=== PATIENT | female | born 1970 | race Caucasian/White ===

== ENCOUNTER 2019-10-17 01:40 | Day surgery (SDC) | payer BC, SELFPAY ==
[2019-10-04 12:53] VITALS: BMI 28.3
--- NOTE | 2019-10-17 07:22 | WPDANESEPPF ---
Anes - Initial Pre Proc Eval Procedure: Operation Date: 10/17/19 08:30 Proposed Procedures p Hysteroscopy Dilation and Curettage - Breana Hunter MD Date/Time: 10/17/19 07:22 Surgeon: Breana Hunter MD Pre Op Diagnosis: Abn uterine bleeding Patient Data Age: 49 Gender: F Height: 5 ft 3 in Weight: 72.57 kg Allergies Allergy/AdvReac Type Severity Reaction Status Date / Time Sulfa (Sulfonamide Allergy Unknown RASH Verified 10/04/19 12:56 Antibiotics) Home Medications Medication Instructions Recorded Confirmed Type bupropion HCl 300 mg PO DAILY 09/12/19 10/04/19 History cyclobenzaprine 10 mg PO BID 09/12/19 10/04/19 History dicyclomine 10 mg PO BID PRN 09/12/19 10/04/19 History estradiol 1.5 mg PO DAILY 09/12/19 10/04/19 History fluoxetine 20 mg PO DAILY 09/12/19 10/04/19 History gabapentin 600 mg PO TID 09/12/19 10/04/19 History naltrexone microspheres [Vivitrol] 380 mg IM MONTHLY 09/12/19 10/04/19 History trazodone 150 mg DAILY 09/12/19 10/04/19 History 1db 1 cap PO BID 10/04/19 History Infinity Supplement 1 cap PO BID 10/04/19 History Joint Mobility 2 cap PO BID 10/04/19 History Thyrodrive 2 cap PO BID 10/04/19 History ascorbic acid (vitamin C) [Vitamin 500 mg PO HS 10/04/19 10/04/19 History C] calcium carbonate [Calcium 600] 600 mg PO BID 10/04/19 10/04/19 History glucos sul [id number]-[id number]-C-Mn 1 cap PO BID 10/04/19 10/04/19 History [Glucosamine Chondroitin] medroxyprogesterone 5 mg PO DAILY 10/04/19 10/04/19 History omega 3-woo-alj-fish oil [Fish Oil] 1 cap PO BID 10/04/19 10/04/19 History vitamin B complex 1 cap PO BID 10/04/19 10/04/19 History Patient hx anesthesia problems: none Family hx anesthesia problems: none PMFSH Past Medical History Medical History Arthritis Diverticulosis Drug addiction History of hysteroscopy IBS (irritable bowel syndrome) Neuropathy Surgical History Surgical History History of arthroplasty of left shoulder Social History Social History Smoking status: Current every day smoker Tobacco type: cigarettes Alcohol intake: former Substance use: former Substance use type: opiates and painkillers Gender identity (if verbalized by the patient): Female Anes - Eval Final PreProcedure Day of Procedure 10/17/19 07:22 Patient weight: overweight Heart: regular rate and rhythm Lungs: decreased breath sounds Airway: Mallampati scale class II Neurological: alert and oriented Last oral intake: >/= 8 hours ASA classification: III Emergent: no Anesthetic plan: proceed Anesthesia type and monitoring: general GIVS and standard monitoring Informed Consent: The patient's anesthetic plan and its attendant risks and benefits were discussed with the patient/family/POA. Questions were solicited and answers provided to the satisfaction of the patient/family/POA.
--- NOTE | 2019-10-17 07:26 | PM.HPGS ---
History of Present Illness History of Present Illness Consent: Risks, benefits, and alternatives have been discussed and questions answered. Patient agrees to proceed with procedure. Chief complaint: Abn uterine bleeding Narrative: Prachi Patel is a 49 year old female with continued random bleeding on HRT. U/s normal and labs normal. Plan hysteroscopy with D&C. Patient aware of risks of infection, bleeding, and perforation as well as possible pathology. [facility] Past Medical History Medical History (Updated 10/17/19 @ 07:32 by Breana Hunter MD) Arthritis Diverticulosis Drug addiction History of hysteroscopy IBS (irritable bowel syndrome) Neuropathy Status post hysteroscopy Surgical History Surgical History (Updated 10/17/19 @ 07:32 by Breana Hunter MD) H/O thumb surgery x 2 History of arthroplasty of left shoulder S/P myomectomy Status post replacement of left shoulder joint Social History Social History Smoking status: Current every day smoker Tobacco type: cigarettes Alcohol intake: former Substance use: former Substance use type: opiates and painkillers Gender identity (if verbalized by the patient): Female Meds Home Medications and Allergies Home Medications Medication Instructions Recorded Confirmed Type bupropion HCl 300 mg PO DAILY 09/12/19 10/04/19 History cyclobenzaprine 10 mg PO BID 09/12/19 10/04/19 History dicyclomine 10 mg PO BID PRN 09/12/19 10/04/19 History estradiol 1.5 mg PO DAILY 09/12/19 10/04/19 History fluoxetine 20 mg PO DAILY 09/12/19 10/04/19 History gabapentin 600 mg PO TID 09/12/19 10/04/19 History naltrexone microspheres [Vivitrol] 380 mg IM MONTHLY 09/12/19 10/04/19 History trazodone 150 mg DAILY 09/12/19 10/04/19 History 1db 1 cap PO BID 10/04/19 History Infinity Supplement 1 cap PO BID 10/04/19 History Joint Mobility 2 cap PO BID 10/04/19 History Thyrodrive 2 cap PO BID 10/04/19 History ascorbic acid (vitamin C) [Vitamin 500 mg PO HS 10/04/19 10/04/19 History C] calcium carbonate [Calcium 600] 600 mg PO BID 10/04/19 10/04/19 History glucos sul 3OQa-hhf-[id number]-C-Mn 1 cap PO BID 10/04/19 10/04/19 History [Glucosamine Chondroitin] medroxyprogesterone 5 mg PO DAILY 10/04/19 10/04/19 History omega 1-hye-npd-fish oil [Fish Oil] 1 cap PO BID 10/04/19 10/04/19 History vitamin B complex 1 cap PO BID 10/04/19 10/04/19 History Allergies Allergy/AdvReac Type Severity Reaction Status Date / Time Sulfa (Sulfonamide Allergy Unknown RASH Verified 10/04/19 12:56 Antibiotics) Exam Const: General: healthy appearing and alert Orientation/consciousness: patient oriented x3 Resp: Effort & Inspection: normal respiratory effort Auscultation: clear to auscultation bilaterally Cardio: Rate: regular rate Rhythm: regular rhythm GI: GI Palp: Yes Soft to palpation, No Tenderness to palpation present (GI) and No Palpable mass present : External Female Exam: normal external appearance Speculum Exam - Vagina: normal appearance of the vagina and normal vaginal discharge Speculum Exam - Cervix: normal appearance of the cervix Bimanual exam- vagina & uterus: uterine size normal and consistency normal Bimanual Exam- Adnexa, other: normal adnexae and No adnexal tenderness Neuro: General: patient oriented x3 Assessment and Plan Assessment and plan (1) Abnormal uterine bleeding: Code(s): N93.9 - Abnormal uterine and vaginal bleeding, unspecified Status: Acute Assessment and Plan: Plan to proceed with hysteroscopy with D&C
[2019-10-17 07:33] VITALS: BP 105/53; PULSE 78; RESP 18; TEMP 36.2; O2SAT 99
[2019-10-17] MEDS: LACTATED RINGERS 1,000 ML 30 ML IV CONT (08:14)
--- NOTE | 2019-10-17 09:07 | PM.OP ---
Procedure Note - Brief Procedure Note - Brief Date of procedure: 10/17/19 Pre-op diagnosis: Abn uterine bleeding Post-op diagnosis: same Procedure performed: hysteroscopy with D&C Anesthesia: MAC and local Surgeon: Breana Hunter MD Estimated blood loss (mL): 5 Drains: No Packing: No Pathology: yes (endometrial curettings) Complications: No immediate complications Condition: stable Disposition: PACU Findings: uterus 7 cm; grossly normal appearing
[2019-10-17 09:20] VITALS: BP 103/66; PULSE 86; RESP 16; O2SAT 100
[2019-10-17 10:01] VITALS: BP 118/90; PULSE 75; RESP 16
--- NOTE | 2019-10-17 11:54 | OP_ITS ---
DATE OF PROCEDURE: 10/17/2019 PREOPERATIVE DIAGNOSIS: Abnormal uterine bleeding. POSTOPERATIVE DIAGNOSIS: Abnormal uterine bleeding. PROCEDURE: D and C, hysteroscopy. ANESTHESIA: MAC and local. FINDINGS: The uterus sounds to 7 cm, appears grossly normal. ESTIMATED BLOOD LOSS: 5 mL. PATHOLOGY: Endometrial curettings. DESCRIPTION OF PROCEDURE: The patient was taken to the operating room, placed under anesthesia, in the dorsal lithotomy position. She was prepped and draped in the usual sterile fashion. Bivalved speculum was placed in the vagina. Cervix was grasped on the anterior lip with a tenaculum and injected with 1% lidocaine. The uterus was sounded to 7 cm. The cervix was serially dilated with Hegar. The diagnostic hysteroscope was placed with the above-stated findings. The hysteroscope was removed. The medium sharp curette was used to sharply curette the endometrium until a good uterine cry was noted in all areas. All instruments were removed. The patient was awakened from anesthesia and taken to Recovery in stable condition. Giselle I MT: Musa
== END 2019-10-17 10:06 | disposition home or self-care (01) ==
PROVIDERS: PCP Family Medicine; Visit Provider Obstetrics & Gynecology Gynecology
PROC: 0U5B8ZZ Destruction of Endometrium, Via Natural or Artificial Opening Endoscopic (ICD-10-PCS; CPT 58563; principal; 2019-10-17 08:30)
DX: N93.9 Abnormal uterine and vaginal bleeding, unspecified (principal); N85.8 Other specified noninflammatory disorders of uterus; K58.9 Irritable bowel syndrome, unspecified; G62.9 Polyneuropathy, unspecified; M19.90 Unspecified osteoarthritis, unspecified site; F17.210 Nicotine dependence, cigarettes, uncomplicated; F11.20 Opioid dependence, uncomplicated
CPT/HCPCS: 58558; 88305; A9270; J0131; J1741; J2704; J7030; J7120

== ENCOUNTER → 2020-06-14 10:42 | Outpatient (CLI) | payer BC, SELFPAY ==
--- NOTE | ~2020-06-14 | XR_ITS ---
XR lumbar spine 2-3V 06/14/2020 13:00 Indication: Low back pain Procedure: 2 views lumbar spine Comparison: 06/22/2009 Findings: There is disc narrowing at L4-5 and L5-S1. There is mild facet hypertrophy at L5-S1. No fra cture or traumatic malalignment. Normal lumbar lordosis. Pedicles intact. Sacral foramen are symmetri c. Impression: 1: Mild lumbar spondylosis. Reviewed, dictated and finalized at location A. Impression: 1: Mild lumbar spondylosis.
== END ==
PROVIDERS: PCP Family Medicine; Visit Provider Physician Assistant
DX: M54.5 Low back pain (principal); M47.816 Spondylosis without myelopathy or radiculopathy, lumbar region
CPT/HCPCS: 72100

== ENCOUNTER → 2020-07-02 08:37 | Outpatient (CLI) | payer BC, SELFPAY ==
--- NOTE | ~2020-07-02 | MR_ITS ---
EXAMINATION: MR lumbar spine wo con DATE: 07/02/2020 09:22 INDICATION: Lumbago. Lumbar radiculopathy. TECHNIQUE: Magnetic resonance imaging (MRI) of the lumbar spine was performed without intravenous con trast. Sequences included sagittal T2-weighted FSE, sagittal T2-weighted FS FSE, sagittal T1-weighted FSE, and axial T2-weighted FSE. COMPARISON: Lumbar spine radiographs 06/14/2020 FINDINGS: Bone alignment is normal. Vertebral body heights are normal. There is mildly decreased disc height at L4-L5. The distal spinal cord signal intensity is normal. The conus medullaris is at L1. T he following disc levels are specifically discussed: L1-L2: The disc does not extend beyond the endplate margin. There is mild bilateral facet joint osteo arthritis. There is no neural foraminal stenosis. There is no central canal stenosis. L2-L3: The disc does not extend beyond the endplate margin. There is mild bilateral facet joint osteo arthritis. There is no neural foraminal stenosis. There is no central canal stenosis. L3-L4: The disc is bulging and has an annular fissure. There is mild bilateral facet joint osteoarthr itis. There is no neural foraminal stenosis. There is no central canal stenosis. L4-L5: The disc is bulging and has an annular fissure. There is moderate right and mild left facet brady int osteoarthritis. There is mild bilateral neural foraminal stenosis. There is no central canal sten osis. L5-S1: The disc does not extend beyond the endplate margin. There is moderate bilateral facet joint o steoarthritis. There is no neural foraminal stenosis. There is no central canal stenosis. IMPRESSION: 1. Mild lumbar spondylosis. Reviewed, dictated and finalized at location A. IMPRESSION: 1. Mild lumbar spondylosis.
== END ==
PROVIDERS: Visit Provider Anesthesiology Pain Medicine
DX: M54.5 Low back pain (principal); M54.16 Radiculopathy, lumbar region
CPT/HCPCS: 72148

== ENCOUNTER → 2020-09-03 14:59 | Outpatient (CLI) | payer BC, SELFPAY ==
--- NOTE | ~2020-09-03 | XR_ITS ---
XR knee RT min 4V 09/03/2020 15:32 INDICATION: Right knee pain PROCEDURE: 4 views right knee COMPARISON: No prior studies for comparison. FINDINGS: Fracture, dislocation or subluxation is not identified. Small joint effusion. The soft tiss ues appear within normal limits. No foreign bodies are identified. IMPRESSION: 1: Small joint effusion. Reviewed, dictated and finalized at location A. P SPECIALIST IMPRESSION: 1: Small joint effusion.
--- NOTE | ~2020-09-03 | XR_ITS ---
EXAMINATION: XR tibia fibula RT 2V DATE: 09/03/2020 15:32 INDICATION: Right mendez pain TECHNIQUE: Anteroposterior and lateral views of the right tibia and fibula were obtained. COMPARISON: None. FINDINGS: Alignment is normal. No fracture. Joint spaces are normal. Soft tissues are unremarkable. IMPRESSION: 1. Negative right tibia and fibula radiographs. Reviewed, dictated and finalized at location B. E [employer]
== END ==
PROVIDERS: PCP Family Medicine; Visit Provider Family Medicine
DX: M25.561 Pain in right knee (principal); M25.461 Effusion, right knee
CPT/HCPCS: 73564; 73590

== ENCOUNTER → 2021-05-06 09:19 | Outpatient (CLI) | payer BC, SELFPAY ==
[2021-05-06 18:30] LABS: SARS-CoV-2 RNA PCR Negative
== END ==
PROVIDERS: PCP Family Medicine; Visit Provider Family Medicine
DX: Z20.822 Contact with and (suspected) exposure to COVID-19 (principal)
CPT/HCPCS: C9803; U0003; U0005

== ENCOUNTER → 2021-09-05 03:21 | Outpatient (CLI) | payer BC, SELFPAY ==
[2021-09-10 22:38] LABS: SARS-CoV-2 RNA PCR Negative
== END ==
PROVIDERS: PCP Family Medicine; Visit Provider Family Medicine
DX: J06.9 Acute upper respiratory infection, unspecified (principal); Z20.822 Contact with and (suspected) exposure to COVID-19
CPT/HCPCS: C9803; U0003; U0005

== ENCOUNTER → 2021-10-26 00:15 | Outpatient (CLI) | payer BC, SELFPAY ==
[2021-10-26 16:55] LABS: SARS-CoV-2 RNA PCR Positive
== END ==
PROVIDERS: PCP Family Medicine; Visit Provider Family Medicine
DX: U07.1 COVID-19 (principal); J06.9 Acute upper respiratory infection, unspecified
CPT/HCPCS: C9803; U0003; U0005

== ENCOUNTER 2022-03-19 09:53 | Emergency (ER) | payer BC, SELFPAY ==
--- NOTE | ~2022-03-19 | US_ITS ---
EXAMINATION:US venous doppler LE LT INDICATION:Left leg swelling TECHNIQUE: Multiple grayscale, color flow and Doppler images of the left lower extremity deep venous systems were obtained and reviewed. COMPARISON:No prior studies for comparison. FINDINGS: The common femoral, superficial femoral and popliteal veins demonstrate normal respiratory variation, augmentation and compressibility. Color flow is also seen within the posterior tibial, pe roneal, greater saphenous and profunda veins. IMPRESSION: 1: No lower extremity deep venous thrombosis. Reviewed, dictated and finalized at location A.
[2022-03-19 09:55] VITALS: BP 175/80; PULSE 82; RESP 16; TEMP 36.4; O2SAT 100
--- NOTE | 2022-03-19 10:13 | ED.LOWEXIN ---
HPI - Extremity Injury (Lower) General Chief Complaint: Extremity Injury, Lower <Chayo Singh PA-C - Last Filed: 03/19/22 17:58> Stated Complaint: L knee pain <Chayo Singh PA-C - Last Filed: 03/19/22 17:58> Time Seen by Provider: 03/19/22 10:12 <Chayo Singh PA-C - Last Filed: 03/19/22 17:58> History of Present Illness HPI Narrative: Patient is a 52-year-old female here for evaluation of left ankle and calf swelling for the past 2 days with some cramping pain in her left ankle and posterior calf. Has not attempted any medication for this. She contacted her primary care provider who recommended she was evaluated in the ED to rule out a blood clot. Patient denies history of blood clots, recent immobilization, use of oral contraceptives, smoking. She tells me that she has been experiencing some arthralgias in her left knee for which she has been following with her primary care provider. She had a steroid injection of the knee with good relief of her pain. She has been wearing a knee brace since that procedure. <Chayo Singh PA-C - Last Filed: 03/19/22 17:58> Related Data Home Medications: Home Medications Medication Instructions Recorded Confirmed bupropion HCl 300 mg 24 hr tablet, 300 mg PO DAILY 09/12/19 10/17/19 extended release cyclobenzaprine 10 mg tablet 10 mg PO BID 09/12/19 10/04/19 dicyclomine 10 mg capsule 10 mg PO BID PRN Diarrhea 09/12/19 10/04/19 estradiol 1 mg tablet 1.5 mg PO DAILY 09/12/19 10/04/19 fluoxetine 20 mg capsule 20 mg PO DAILY 09/12/19 10/17/19 gabapentin 600 mg tablet 600 mg PO TID 09/12/19 10/17/19 naltrexone microspheres 380 mg 380 mg IM MONTHLY 09/12/19 10/04/19 intramuscular suspension,extended release (Vivitrol) trazodone 150 mg tablet 150 mg DAILY 09/12/19 10/04/19 1db 1 cap PO BID 10/04/19 Infinity Supplement 1 cap PO BID 10/04/19 Joint Mobility 2 cap PO BID 10/04/19 Thyrodrive 2 cap PO BID 10/04/19 ascorbic acid (vitamin C) 500 mg 500 mg PO HS 10/04/19 10/17/19 tablet (Vitamin C) calcium carbonate 600 mg calcium 600 mg PO BID 10/04/19 10/17/19 (1,500 mg) tablet (Calcium) glucosamine sulf dipot 1 cap PO BID 10/04/19 10/17/19 chlr,msm,chond 550 mg-C 30 mg-billy 1 mg capsule (Glucosamine Chondroitin) medroxyprogesterone 5 mg tablet 5 mg PO DAILY 10/04/19 10/04/19 omega 2-ope-yro-fish oil 1,000 mg 1 cap PO BID 10/04/19 10/17/19 (120 mg-180 mg) capsule (Fish Oil) vitamin B complex 1 cap PO BID 10/04/19 10/17/19 <Chayo Singh PA-C - Last Filed: 03/19/22 17:58> Allergies/Adverse Reactions: Allergies Allergy/AdvReac Type Severity Reaction Status Date / Time Sulfa (Sulfonamide Allergy Unknown RASH Verified 03/19/22 10:13 Antibiotics) <Chayo Singh PA-C - Last Filed: 03/19/22 17:58> Review of Systems Review of Systems: Gen.: Denies fevers or chills Eyes: Denies eye pain or visual change ENT: Denies congestion Respiratory: Denies shortness of breath or cough CV: Denies chest pain or palpitations GI: Denies abdominal pain nausea, emesis or diarrhea denies burning, urgency, frequency or hematuria Musculoskeletal: Reports left calf and ankle pain. Denies back pain or muscle pain Neuro: Denies numbness, tingling, weakness or focal weakness Skin: Denies rash Except as documented, all other systems reviewed and negative <Chayo Singh PA-C - Last Filed: 03/19/22 17:58> [facility] Past Medical History Medical History: Medical History Arthritis Diverticulosis Drug addiction IBS (irritable bowel syndrome) Neuropathy Status post hysteroscopy <Chayo Singh PA-C - Last Filed: 03/19/22 17:58> Surgical History Surgical History: Surgical History H/O thumb surgery x 2 History of arthroplasty of left shoulder History
--- NOTE | 2022-03-19 10:20 | PC.NURSE ---
pt to US from waiting room
== END 2022-03-19 11:06 | disposition home or self-care (01) ==
LOC: ANHED 10:58
PROVIDERS: Emergency Provider Emergency Medicine; PCP Family Medicine
DX: M25.472 Effusion, left ankle (principal); M19.90 Unspecified osteoarthritis, unspecified site
CPT/HCPCS: 93971; 99284

== ENCOUNTER 2022-06-18 14:35 | Outpatient (CLI) | payer BC, SELFPAY ==
--- NOTE | ~2022-06-18 | MR_ITS ---
EXAMINATION: MR knee LT wo con DATE: 06/18/2022 15:39 INDICATION: Left knee pain TECHNIQUE: Magnetic resonance imaging (MRI) of the left knee was performed without intravenous contra st. Sequences included coronal PD-weighted FSE, coronal PD-weighted FS FSE, sagittal T2-weighted FSE , sagittal PD-weighted FS FSE and axial PD weighted fat saturated FSE. COMPARISON: None. FINDINGS: Medial compartment: Complex medial meniscal tear including a full-thickness radial tear plane near the posterior root and a longitudinal tear plane beginning of the paired beak configuration tear at the posterior horn mack sition to more normally plane extending to the inferior articular surface at the junction of the post erior horn and body. Partial thickness chondral ulceration with chondral surface regularity and parti al-thickness cartilage loss at the anterior to central weightbearing medial femoral condyle. Addition al less severe partial thickness cartilage loss with subtle chondral surface regularity at the medial tibial plateau. Lateral compartment: Lateral meniscus is normal. Articular cartilage is normal. Patellofemoral compartment: Chondral ulceration, shallow at the trochlear groove and involving greater than 50% the cartilage thi ckness along portions of the medial trochlea. Additional deep chondral ulceration at the patellar api imelda ridge and portions of the medial facet. Shallow chondral fissuring at the lateral patellar facet. Ligaments and tendons: Anterior and posterior cruciate ligaments are normal. The medial collateral ligament and fibular marielle ateral ligament complex are normal. Patellar tendon is normal. Mild distal quadriceps tendinopathy wi thout tear. The visualized medial and lateral hamstring tendons as well as the iliotibial band are no rmal. Moderate tendinopathy with longitudinal split tearing along the proximal 4 cm of the tendon of the medial head of the gastrocnemius. Fluid: Moderate left knee joint effusion. Moderate-sized Blake's cyst. No loose osteochondral bodies identif ied. Osseous/other: Bone alignment is normal. No fracture or pathologic marrow replacing process. IMPRESSION: 1. Complex tear of the posterior horn of the medial meniscus. 2. 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 3. Moderate-sized left knee joint effusion and moderate-sized Blake's cyst. 4. Moderate tendinopathy with mild longitudinal split tearing along the proximal tendon of the medial head of the gastrocnemius. 5. Mild distal quadriceps tendinopathy. Reviewed, dictated and finalized at location A. IMPRESSION: 1. Complex tear of the posterior horn of the medial meniscus. 2. Mild osteoarthritis with extensive moderate grade chondromalacia in the medi al and patellofemoral compartments. 3. Moderate-sized left knee joint effusion and moderate-sized Blake's cyst. 4. Moderate tendinopathy with mild longitudinal split tearing along the proxima l tendon of the medial head of the gastrocnemius. 5. Mild distal quadriceps tendinopathy.
== END 2022-06-18 14:36 | disposition home or self-care (01) ==
PROVIDERS: PCP Family Medicine; Visit Provider Nurse Practitioner Family
DX: S83.232A Complex tear of medial meniscus, current injury, left knee, initial encounter (principal); M17.12 Unilateral primary osteoarthritis, left knee; M71.22 Synovial cyst of popliteal space [Baker], left knee; S86.812A Strain of other muscle(s) and tendon(s) at lower leg level, left leg, initial encounter
CPT/HCPCS: 73721

== ENCOUNTER → 2023-09-24 11:52 | Outpatient (CLI) | payer BC, SELFPAY ==
--- NOTE | ~2023-09-24 | XR_ITS ---
AP and lateral views of the left femur Clinical History: Foreign body Findings: No acute fracture or dislocation is seen. Osseous alignment is anatomic. There is minimal d egenerative change of the left hip joint. Soft tissues are unremarkable. Impression: No radiopaque foreign body seen. Reviewed, dictated and finalized at [facility]. [facility] Impression: No radiopaque foreign body seen.
== END ==
PROVIDERS: PCP Family Medicine; Visit Provider Family Medicine
DX: S80.852A Superficial foreign body, left lower leg, initial encounter (principal)
CPT/HCPCS: 73552

== ENCOUNTER 2023-10-31 17:34 | Emergency (ER) | payer BC, SELFPAY ==
[2023-10-31 17:50] VITALS: BP 106/62; PULSE 88; RESP 16; TEMP 35.8; O2SAT 98
--- NOTE | 2023-10-31 18:21 | ED.SKABFB ---
HPI - Skin/Abscess/Foreign Bdy General Chief complaint: Skin/Abscess/Foreign Body Stated complaint: rash Time Seen by Provider: 10/31/23 18:06 Source: patient and RN notes reviewed Mode of arrival: ambulatory Limitations: no limitations History of Present Illness HPI narrative: Patient presents today complaining of a rash to her torso, neck, and bilateral arms that started approximately 9 hours prior to arrival. States that started on her abdomen and has spread from there. Denies shortness of breath, facial swelling, difficulty swallowing. She took 2 Benadryl 2 hours after onset of symptoms. States these did not provide any relief. Denies any new household products, foods, plantar animal contact. She started a new medication, Sulindac, 2 weeks ago, prescribed by her PCP. Related Data Home Medications Medication Instructions Recorded Confirmed cyclobenzaprine 10 mg tablet 10 mg PO BID 09/12/19 10/31/23 trazodone 150 mg tablet 150 mg PO HS 09/12/19 10/31/23 ascorbic acid (vitamin C) 500 mg 500 mg PO HS 10/04/19 10/31/23 tablet (Vitamin C) glucosamine sulf dipot 1 cap PO BID 10/04/19 10/31/23 chlr,msm,chond 550 mg-C 30 mg-billy 1 mg capsule (Glucosamine Chondroitin) vitamin B complex 1 cap PO BID 10/04/19 10/31/23 bupropion HCl 300 mg 24 hr tablet, 300 mg PO DAILY 06/03/22 10/31/23 extended release fluoxetine 20 mg capsule 80 mg PO DAILY 06/03/22 10/31/23 aripiprazole 2 mg tablet 2 mg PO DAILY 06/30/22 10/31/23 bupropion HCl 150 mg tablet,12 hr 150 mg PO HS 06/30/22 10/31/23 sustained-release melatonin 10 mg tablet 10 mg PO DAILY 06/30/22 10/31/23 progesterone micronized 100 mg 200 mg PO HS 06/30/22 10/31/23 capsule testosterone cypionate 200 mg/mL 200 mg subcut MONTHLY 09/24/23 10/31/23 intramuscular oil celecoxib 100 mg capsule 100 mg PO BID 10/31/23 10/31/23 syringe with needle 3 mL 25 gauge 10/31/23 10/31/23 x 1 (BD Luer-Alfreda Syringe) Allergies Allergy/AdvReac Type Severity Reaction Status Date / Time Sulfa (Sulfonamide AdvReac Mild RASH Verified 10/31/23 17:52 Antibiotics) Review of Systems Review of Systems: CONSTITUTIONAL: Denies body aches, fever, chills, or sweats. EYES: Denies visual changes, redness, or discharge. ENT: Denies rhinorrhea, congestion, sore throat, or otalgia. CARDIOVASCULAR: Denies chest pain, palpitations, or edema. RESPIRATORY: Denies cough or dyspnea. GASTROINTESTINAL: Denies abdominal pain, nausea, vomiting, or diarrhea. GENITOURINARY: Denies dysuria or hematuria. SKIN: + pruritic rash MUSCULOSKELETAL: Denies back pain, joint pain, or myalgia. NEUROLOGIC: Denies headache, numbness, tingling, or weakness. PSYCH: Denies depression or anxiety. [facility] Past Medical History Medical History Abnormal uterine bleeding Arthritis Degenerative joint disease of knee Diverticulosis Drug addiction IBS (irritable bowel syndrome) Left knee injury Left knee pain Medial meniscus tear Neuropathy Status post hysteroscopy Surgical History Surgical History H/O thumb surgery x 2 History of arthroplasty of left shoulder History of hysteroscopy S/P myomectomy Status post replacement of left shoulder joint Social History Social History Years smoked: 40 Smoking status: Current every day smoker Tobacco type: cigarettes Alcohol intake: current Drinks per week: 1 Substance use: current Substance use type: crack/cocaine Do You Feel Safe in your Home?: Yes Lack of Transportation: No Lack of Food: Never True Current Housing: I Have Housing Concerned About Future Housing: No Difficulty Paying Gas/Electric Bills: No Difficulty Paying for Meds: No Currently Unemployed: No Education: High School Diploma/GED Difficulty w/ Childcare or Family Care: No Manju
== END 2023-10-31 18:37 | disposition home or self-care (01) ==
PROVIDERS: Emergency Provider Nurse Practitioner; PCP Family Medicine
DX: L50.9 Urticaria, unspecified (principal); F17.210 Nicotine dependence, cigarettes, uncomplicated; M19.90 Unspecified osteoarthritis, unspecified site
CPT/HCPCS: 96372; 99213; G0463; J1100

== ENCOUNTER 2024-04-11 00:19 | Day surgery (SDC) | payer BC, SELFPAY ==
[2024-04-07 10:53] VITALS: BMI 25.7
--- NOTE | 2024-04-07 10:53 | PC.NURSE ---
Report to the Outpatient Waiting Room, entrance under the green pavilion located off [facility], at time _1100_ on date _[id number]_. Planned Procedure Time: _1pm_. Time changes happen often and if your time is changed the preop area will call you the afternoon before. - You and your visitor will be asked to self-screen and do not enter if you have any COVID symptoms. - A mask is optional within the hospital at this time. Patients may have clear liquids (water, carbonated beverages, clear teas, apple juice) until 3 hours prior to surgery with a maximum of 20 ounces. - No food from midnight until time of surgery Take the following medications with a SIP of water the morning of surgery: ___Bupropion, Fluoxetine and Gabapentin DO NOT STOP ANY OF YOUR OTHER PRESCRIPTION MEDICATIONS PRIOR TO SURGERY ?EXCEPT THE FOLLOWING Medications to discontinue per physician Glucosamine Date to take last mpgv__[phone] Qtjujoe says she stopped Wegovy with last dose taken 03-25-2024. Please no make-up, nail italian, hairspray, perfume, deodorant, or body powder the day of surgery. No jewelry (including any body piercings) or valuables the day of surgery, leave them at home. Please take a shower or bath the night before, or the morning of, surgery with an antibacterial soap. Wear comfortable, loose fitting clothing. - Jewelry must be removed prior to entering the operating room. Rings and piercings that are not removed may be cut off. - The hospital will not accept responsibility for valuables. - Please leave all valuables, including medications, at home the day of surgery. If you are going home after surgery, a licensed power screwdriver operator must drive you home. - NO public transportation without another adult if you receive anesthesia. - We recommend that an adult stay with you for 24 hours following discharge. - We also recommend that you do not drive, make important decision, drink alcoholic beverages, or take any drugs that were not prescribed by your health care provider for at least 24 hours after your discharge time. Follow any additional instructions given to you from your surgeon. If you or anyone in your household have experienced Covid symptoms in the past week, please notify your surgeon or the nurse liaison at the phone number below for possible testing. Telephone instructions given to ___Chrisben___and asked if any additional questions and then verbalized understanding. Patient advised to call surgeon office or pre surgery nurse liaison [phone] if any additional questions.
--- NOTE | 2024-04-11 10:18 | WPDHPUPDATE1 ---
History and Physical Update Update Date/Time: 04/11/24 10:18 History and Physical has been reviewed, including an updated exam of the patient. There are NO changes in the patient's condition. Risks, benefits, and alternatives have been discussed and questions answered. Patient agrees to proceed with procedure.
[2024-04-11] MEDS: LACTATED RINGERS 1,000 ML 30 ML IV CONT (11:40)
[2024-04-11 11:52] VITALS: BP 116/45; PULSE 68; RESP 16; TEMP 36.3; O2SAT 100
--- NOTE | 2024-04-11 12:34 | WPDANESEPPF ---
Anes - Initial Pre Proc Eval Procedure: Operation Date: 04/11/24 13:00 Proposed Procedures p Excisional Biopsy of Right Lower Extremities Mass Times One, Right Upper Extremities Mass Times Two, Left Upper Extremities Mass Times Three - Sneha Treadwell MD Date/Time: 04/11/24 12:34 Surgeon: Sneha Treadwell MD Pre Op Diagnosis: bilateral upper extremities sub q mass, Patient Data Age: 54 Gender: F Height: 1.6 m Weight: 68.4 kg Last Vital Signs Temp 97.3 F L 04/11/24 11:52 Pulse 68 04/11/24 11:52 Resp 16 04/11/24 11:52 BP 116/45 L 04/11/24 11:52 Pulse Ox 100 04/11/24 11:52 O2 Del Method Room Air 04/11/24 11:52 Allergies Allergy/AdvReac Type Severity Reaction Status Date / Time Sulfa (Sulfonamide AdvReac Mild RASH Verified 04/11/24 11:21 Antibiotics) Home Medications Medication Instructions Recorded Confirmed Type trazodone 150 mg tablet 150 mg PO HS 09/12/19 04/07/24 History glucosamine sulf dipot 1 cap PO BID 10/04/19 04/07/24 History chlr,msm,chond 550 mg-C 30 mg-billy 1 mg capsule (Glucosamine Chondroitin) bupropion HCl 300 mg 24 hr tablet, 300 mg PO DAILY 06/03/22 04/07/24 History extended release fluoxetine 20 mg capsule 80 mg PO DAILY 06/03/22 04/07/24 History aripiprazole 2 mg tablet 2 mg PO DAILY 06/30/22 04/07/24 History bupropion HCl 150 mg tablet,12 hr 150 mg PO HS 06/30/22 04/07/24 History sustained-release melatonin 10 mg tablet 10 mg PO DAILY 06/30/22 04/07/24 History progesterone micronized 100 mg 200 mg PO HS 06/30/22 04/07/24 History capsule testosterone cypionate 200 mg/mL 200 mg subcut MONTHLY 09/24/23 04/07/24 History intramuscular oil syringe with needle 3 mL 25 gauge 10/31/23 04/07/24 History x 1 (BD Luer-Alfreda Syringe) hyoscyamine sulfate 0.125 mg tablet See Rx Instructions .Route 11/29/23 04/07/24 Rx .COMPLEX #90 tabs estradiol cypionate 5 mg/mL 2.5 mg IM MONTHLY 12/04/23 04/07/24 History intramuscular oil (Depo-Estradiol) baclofen 10 mg tablet 10 mg PO BID #180 tabs 01/12/24 04/07/24 Rx esomeprazole magnesium 40 mg 40 mg PO DAILY #90 caps 01/29/24 04/07/24 Rx capsule,delayed release varenicline 1 mg tablet (Chantix) 1 mg PO BID #180 tabs 02/15/24 04/07/24 Rx semaglutide (weight loss) 0.25 0.25 mg subcut WEEKLY 03/29/24 04/07/24 History mg/0.5 mL subcutaneous pen injector (Wegovy) sulindac 200 mg tablet 200 mg PO BID #90 tabs 03/29/24 04/07/24 Rx gabapentin 600 mg tablet 600 mg PO BID #180 tabs 04/01/24 04/07/24 Rx Patient hx anesthesia problems: none Family hx anesthesia problems: none Results Review: All pre-operative results and documents have been reviewed as part of the pre-operative evaluation. [facility] Past Medical History Medical History Abnormal uterine bleeding Arthritis Degenerative joint disease of knee Diverticulosis Drug addiction IBS (irritable bowel syndrome) Left knee injury Left knee pain Medial meniscus tear Neuropathy Status post hysteroscopy Surgical History Surgical History H/O thumb surgery x 2 History of arthroplasty of left shoulder History of hysteroscopy S/P myomectomy Status post replacement of left shoulder joint Social History Social History Years smoked: 42 Smoking status: Current every day smoker Tobacco type: cigarettes Alcohol intake: current Drinks per week: 1 Substance use: current Substance use type: crack/cocaine Do You Feel Safe in your Home?: Yes Lack of Transportation: No Lack of Food: Never True Current Housing: I Have Housing Concerned About Future Housing: No Difficulty Paying Gas/Electric Bills: No Difficulty Paying for Meds: No Currently Unemployed: No Education: High School Diploma/GED Difficulty w/ Childcare or Family Care: No
[2024-04-11] MEDS: ceFAZolin 2 GM/D5W 50 ML 2 GM/50 ML BAG IVPB (13:32)
[2024-04-11] MEDS: BUPIVACAINE/EPINEPHRINE 0.5% 10 ML VIAL 30 ML INFILTRATE (14:15)
--- NOTE | 2024-04-11 14:37 | W.PM.PROC2 ---
Procedure Note - Detailed Date of Procedure 04/11/24 Pre-op Diagnosis right upper extremity subcutaneous mass x3, left upper extremity subcutaneous mass x3, right lower extremity subcutaneous mass x2 Post-op Diagnosis Same Procedure Performed excisional biopsy right upper extremity subcutaneous mass x3, left upper extremity subcutaneous mass x3, right lower extremity subcutaneous mass x2 Surgeon Sneha Treadwell MD Anesthesia MAC and Local Indications 54-year-old female presenting to the office with multiple subcutaneous masses located in her bilateral upper extremities, right lower extremity. The patient reports these masses have been growing for many years. The patient reports the masses are now symptomatic especially to pressure, palpation. Findings Multiple subcutaneous masses as located above, most consistent with lipoma Description of Procedure The patient was taken to the operating room placed in the supine position. After adequate induction of MAC anesthesia, the patient was prepped and draped in the normal sterile fashion. A time-out was then done to verify the patient's identity, as well as the procedure being performed. I began by localizing the area and around these masses located in the bilateral upper extremities, as well as the right lower extremity. I then began by making an incision over the masses in the right upper extremity. This was located in the lateral forearm and right medial wrist area. The mass in the lateral forearm was located in the subcutaneous tissue and I was able to bluntly dissect around this mass with the hemostat. The mass was then removed in full and sent to pathology for further review. This mass measured 4 x 3 cm and was well circumscribed, most consistent with lipoma. Once removed, hemostasis was gained with the Bovie cautery. The subcutaneous tissue was closed with 3-0 Vicryl suture. The skin was closed with 4-0 Monocryl subcuticular suture. I then removed the 2 masses in the medial wrist area. Again, this was located within the subcutaneous tissue. I was able to remove both masses through the same incision. This was done once again by bluntly dissecting around the masses and removing them in full. These masses both measured approximately 3 x 2 cm. Again this incision was closed with 3-0 Vicryl suture in the subcutaneous level and 4-0 Monocryl subcuticular suture at the dermal level. I then made incisions over the masses in the left upper extremity. This was again in the left lateral forearm and left medial wrist area x2. The mass in the left lateral forearm measured approximately 4 x 2 cm. The masses in the left medial wrist area measured 2 x 2 cm and 3 x 3 cm. There were all located within the subcutaneous tissue, well-circumscribed, and most consistent with lipoma. The closure of the incisions was done with 3-0 Vicryl suture in the subcutaneous level and 4-0 Monocryl subcuticular sutures at the dermal level. Finally, there was noted to be 2 masses in the right upper thigh. One medial and 1 lateral. Incisions were made over both these areas and again the masses were well circumscribed and located within the subcutaneous tissue. I was able to bluntly dissect around both these masses and they removed in full. The lateral mass measured 6 x 4 cm and the medial mass measured 4 x 4 cm. The cavities were again closed with 3-0 Vicryl suture at the subcutaneous level and 4-0 Monocryl subcuticular suture at the dermal level. Dermabond was placed on all these incisions. All masses were sent to pathology for further review. The patient tolerated the procedure well and was alert and awake postoperatively. She was sent to the recovery room in stable condition. Estimated Blood Loss 10 Pathology Yes Complications No immediate complications Condition Stable Disposition PACU [facility] Billing Surgery - Charge Forward: Surgery Billing
[2024-04-11 14:44] VITALS: BP 137/72; PULSE 64; RESP 12; O2SAT 97
[2024-04-11 15:10] VITALS: BP 134/58; PULSE 60
[2024-04-11 15:40] VITALS: BP 142/80; PULSE 71
[2024-04-11 16:10] VITALS: BP 155/85; PULSE 67
== END 2024-04-11 16:25 | disposition home or self-care (01) ==
PROVIDERS: PCP Family Medicine; Visit Provider Surgery
PROC: (CPT 25071; principal; 2024-04-11 13:00)
DX: D17.21 Benign lipomatous neoplasm of skin and subcutaneous tissue of right arm (principal); D17.24 Benign lipomatous neoplasm of skin and subcutaneous tissue of left leg; K58.9 Irritable bowel syndrome, unspecified; Z98.890 Other specified postprocedural states; F17.210 Nicotine dependence, cigarettes, uncomplicated; F14.90 Cocaine use, unspecified, uncomplicated; K21.9 Gastro-esophageal reflux disease without esophagitis; Z79.85 Long-term (current) use of injectable non-insulin antidiabetic drugs
CPT/HCPCS: 25071; 27337; 88304; J0690; J2250; J2371; J2405; J2704; J3010; J7120

== ENCOUNTER 2024-09-12 11:11 | Emergency (ER) | payer BC, SELFPAY ==
--- NOTE | ~2024-09-12 | XR_ITS ---
XR ankle LT min 3V Ordering provider: Bindu Nettles APRN History: . pain swelling to left lateral ankle, no injury . Comparison: None. FINDINGS: BONES: No acute fracture or dislocation. JOINT SPACES: The ankle mortise is normal. SOFT TISSUES: Minimal soft tissue swelling over the lateral malleolus. IMPRESSION: No acute osseous abnormality left ankle. If patient continues to have symptoms follow-up advised. Reviewed, dictated and finalized at location A. [facility]
[2024-09-12 11:18] VITALS: BP 127/58; PULSE 101; RESP 16; TEMP 36.6; O2SAT 99
--- NOTE | 2024-09-12 11:22 | ED.LOWEXIN ---
HPI - Extremity Injury (Lower) General Chief Complaint: Extremity Problem,Nontraumatic Stated Complaint: LT Ankle injury Time Seen by Provider: 09/12/24 11:25 Source: patient Mode of arrival: ambulatory Limitations: no limitations History of Present Illness HPI Narrative: 54-year-old female presented for complaint of left ankle pain and swelling for 2 days. She denies specific injury but states started after she was kneeling and sitting on the feet for a while. Has tried to elevate and ice the ankle. Has been able to ambulate without difficulty. Rates pain 5/10. Denies redness or warmth, numbness, tingling, or weakness. Related Data Home Medications ?Medication ?Instructions ?Recorded ?Confirmed ?Last Taken ?Type trazodone 150 mg tablet 150 mg PO HS 09/12/19 06/01/24 Unknown History glucosamine sulf dipot 1 cap PO BID 10/04/19 06/01/24 10/14/19 History chlr,msm,chond 550 mg-C 30 mg-billy 1 mg capsule (Glucosamine Chondroitin) bupropion HCl 300 mg 24 hr tablet, 300 mg PO DAILY 06/03/22 06/01/24 Unknown History extended release fluoxetine 20 mg capsule 80 mg PO DAILY 06/03/22 06/01/24 Unknown History aripiprazole 2 mg tablet 2 mg PO DAILY 06/30/22 06/01/24 Unknown History bupropion HCl 150 mg tablet,12 hr 150 mg PO HS 06/30/22 06/01/24 Unknown History sustained-release melatonin 10 mg tablet 10 mg PO DAILY 06/30/22 06/01/24 Unknown History progesterone micronized 100 mg 200 mg PO HS 06/30/22 06/01/24 Unknown History capsule testosterone cypionate 200 mg/mL 200 mg subcut MONTHLY 09/24/23 06/01/24 Unknown History intramuscular oil syringe with needle 3 mL 25 gauge 10/31/23 04/26/24 Unknown History x 1 (BD Luer-Alfreda Syringe) estradiol cypionate 5 mg/mL 2.5 mg IM MONTHLY 12/04/23 06/01/24 Unknown History intramuscular oil (Depo-Estradiol) semaglutide (weight loss) 0.25 0.25 mg subcut WEEKLY 03/29/24 06/01/24 03/25/24 History mg/0.5 mL subcutaneous pen injector (Wegovy) Allergies Allergy/AdvReac Type Severity Reaction Status Date / Time Sulfa (Sulfonamide AdvReac Mild RASH Verified 09/12/24 11:23 Antibiotics) Review of Systems Review of Systems: CONSTITUTIONAL: Denies body aches, fever, chills CARDIOVASCULAR: Denies chest pain, palpitations, or edema. RESPIRATORY: Denies cough or dyspnea. SKIN: Denies rash, itching, or wounds. MUSCULOSKELETAL:reports left ankle pain/swelling NEUROLOGIC: Denies headache, numbness, tingling, or weakness. All systems reviewed & are unremarkable except as noted in HPI and below PMFSH Past Medical History Medical History Medial meniscus tear Left knee injury Degenerative joint disease of knee Left knee pain Abnormal uterine bleeding Status post hysteroscopy Diverticulosis IBS (irritable bowel syndrome) Drug addiction Arthritis Neuropathy Surgical History Surgical History Hx of excision of mass excisional biopsy right upper extremity subcutaneous mass x3, left upper extremity subcutaneous mass x3, right lower extremity subcutaneous mass x2 H/O thumb surgery x 2 Status post replacement of left shoulder joint S/P myomectomy History of arthroplasty of left shoulder History of hysteroscopy Social History Social History Years smoked: 42 Smoking status: Current every day smoker Tobacco type: cigarettes Alcohol intake: current Drinks per week: 1 Substance use: current Substance use type: crack/cocaine Do You Feel Safe in your Home?: Yes Lack of Transportation: No Lack of Food: Never True Current Housing: I Have Housing Concerned About Future Housing: No Difficulty Paying Gas/Electric Bills: No Difficulty Paying for Meds: No Currently Unemployed: No Education: High School Diploma/GED Difficulty w/ Childcare or Family Care: No Living arrangements: with family Occupation/Education: unemployed Gender identity (if verbalized by the patient): Female Sexual Orientation (if Verbalized by the Patient): Straight or Heterosexual Spiritual care concerns: No Comments At time of signature, I have reviewed and agree with nursing past medical, surgical, social and family history unless otherwise noted. Please see nursing chart for further information. There is no relevant family history pertinent to the presenting complaint Exam Narrative: GENERAL: Well-appearing CHEST: Speaks in full sentences. No respiratory distress. HEART: Regular rate and rhythm. Normal and equal peripheral pulses. EXTREMITIES: Left foot has normal strength and sensation, normal range of motion to ankle but endorses pain with flexion movement. Mild swelling over lateral malleolus. No ecchymosis, No point tenderness. No open wounds or obvious deformity; alignment normal, pulse palpable and equal bilaterally, skin warm, dry, pink. Capillary refill less than 3 seconds. SKIN: Warm, dry NEURO: Alert and oriented x3. PSYCH: Normal mood and affect Course Course Emergency Course: Patient is aware of diagnosis, understands and agrees to treatment plan. Anticipatory guidance given. Patient agrees to follow-up as directed and is aware of reasons to seek care at the emergency department. Portions of this record may have been created with voice recognition software Level of Care: Express Care Visit Vital Signs Vital signs: Vital Signs Temperature 97.9 F 09/12/24 11:18 Pulse Rate 101 H 09/12/24 11:18 Respiratory Rate 16 09/12/24 11:18 Blood Pressure 127/58 L 09/12/24 11:18 Pulse Oximetry 99 09/12/24 11:18 Oxygen Delivery Room Air 09/12/24 11:18 Temperature 97.9 F 09/12/24 11:18 Pulse Rate 101 H 09/12/24 11:18 Respiratory Rate 16 09/12/24 11:18 Blood Pressure 127/58 L 09/12/24 11:18 Pulse Oximetry 99 09/12/24 11:18 Oxygen Delivery Room Air 09/12/24 11:18 Reviewed MDM - Extremity Injury (Lower) MDM Narrative Medical decision making narrative: Discussed physical exam findings and xray. JIMBO applied. Advised supportive measures and signs/symptoms to go to the ER. Pt is appropriate for outpt treatment and f/u. Differential Diagnosis Differential diagnosis: Likely ankle sprain and strain, ankle fracture and other (gout, cellulitis, arthritis) Imaging Data Radiologist's impression: Patient: Prachi Patel : 1970 MR#: [id number] Age: 54 Acct:[id number] Loc: [facility] ADM Date: 09/12/24Attending Dr: Ordering Physician: Bindu Nettles APRN Date of Service: 09/12/24 Procedure(s): XR ankle LT min 3V Accession Number(s): [id number] cc: Bindu Nettles APRN; Shine Frederick MD~ XR ankle LT min 3V Ordering provider: Bindu Nettles APRN History: . pain swelling to left lateral ankle, no injury . Comparison: None. FINDINGS: BONES: No acute fracture or dislocation. JOINT SPACES: The ankle mortise is normal. SOFT TISSUES: Minimal soft tissue swelling over the lateral malleolus. IMPRESSION: No acute osseous abnormality left ankle. If patient continues to have symptoms follow-up advised Discharge Plan Discharge Clinical Impression: Pain and swelling of ankle Patient Disposition: Home, Self-Care Condition: Stable Instructions: Ankle Strain (ED) Additional Instructions: Rest and elevate the left leg; bear weight as tolerated Apply ice 15-20 minute intervals several times a day Keep it wrapped with JIMBO or use a soft ankle splint Motrin 800mg every 8 hours, alternate with Tylenol 1000mg every 8 hours as needed Follow up with your primary care provider as needed Go to the ER for worsening symptoms or concerns Patient Language: Kosovan Prescriptions: No Action trazodone 150 mg tablet 150 mg PO HS fluoxetine 20 mg capsule 80 mg PO DAILY bupropion HCl 300 mg tablet extended release 24 hr 300 mg PO DAILY Patient Comments: Pt. states she is taking 150mg of medication in the afternoon (DME) BD Luer-Alfreda Syringe 3 mL 25 gauge x 1 syringe MISCELLANEOUS Depo-Estradiol 5 mg/mL oil 2.5 mg IM MONTHLY testosterone cypionate 200 mg/mL oil 200 mg subcut MONTHLY Wegovy 0.25 mg/0.5 mL pen injector 0.25 mg subcut WEEKLY Rx Instructions: administer weeks 1 through 4 of therapy Glucosamine Chondroitin 550-30-1 mg Capsule 1 cap PO BID bupropion HCl 150 mg tablet sustained-release 12 hr 150 mg PO HS Patient Comments: pt takes in afternoon progesterone micronized 100 mg capsule 200 mg PO HS aripiprazole 2 mg tablet 2 mg PO DAILY melatonin 10 mg Tablet 10 mg PO DAILY esomeprazole magnesium 40 mg capsule,delayed release(DR/EC) 40 mg PO DAILY Qty: 90 1RF gabapentin 600 mg tablet 600 mg PO BID Qty: 180 1RF gentamicin 0.3 % drops 1 drp EACH EYE TID Qty: 5 0RF hyoscyamine sulfate 0.125 mg tablet See Rx Instructions .ROUTE .COMPLEX Qty: 90 1RF Dose Instruction: 0.125 MG ORALLY FOUR TIMES DAILY NEEDED FOR ABDOMINAL DISCOMFORT Rx Instructions: 0.125 MG ORALLY FOUR TIMES DAILY NEEDED FOR ABDOMINAL DISCOMFORT sulindac 200 mg tablet 200 mg PO BID Qty: 180 1RF varenicline [Chantix] 1 mg tablet 1 mg PO BID Qty: 56 1RF baclofen 10 mg tablet 10 mg PO TID Qty: 270 0RF Follow-up/Referrals: Shine Frederick MD [Primary Care Provider] - Time of Disposition: 12:27
== END 2024-09-12 12:28 | disposition home or self-care (01) ==
PROVIDERS: Emergency Provider Nurse Practitioner Family; PCP Family Medicine
DX: M25.572 Pain in left ankle and joints of left foot (principal); M79.89 Other specified soft tissue disorders; F17.210 Nicotine dependence, cigarettes, uncomplicated
CPT/HCPCS: 73610; 99213; G0463

== ENCOUNTER 2024-10-17 13:45 | Outpatient (CLI) | payer BC, SELFPAY ==
--- NOTE | 2024-10-17 13:56 | ECG_ITS ---
Test Date: 2024-10-17 14:04:14 Measurements Intervals Kaplan Rate: 95 P: 70 CT: 137 QRS: 52 QRSD: 86 T: 53 QT: 347 QTc: 437 Interpretive Statements SINUS RHYTHM POSSIBLE LEFT ATRIAL ENLARGEMENT [-0.1mV P-WAVE IN V1/V2] POSSIBLE LEFT VENTRICULAR HYPERTROPHY [VOLTAGE CRITERIA PLUS LAE OR QRS WIDENING] No previous ECG available for comparison Electronically Signed On 10-17-2024 21:13:20 RECRUITING MANAGER by Kp Tobar M.D.
--- OUTSIDE RECORDS SUMMARY | 2024-10-17 14:34 | XMS_ITS | Referral Summary ---
Author Organization [facility] Address [address] [place] [address] Care Team Providers Care Dope Worker Name Role Phone Sophie Fish MD Unavailable [phone] Shine Frederick MD Primary Care Provider [phone] Source Comments [facility],non-owned Affiliates and Associated Physician Practices is amultiple site organization consisting of ambulatory clinics and hospital sitesin [place], [place], [place] and [place]. This disclosure is being madepursuant to the Care Everywhere program and may not contain all information available regarding this patient. Last updated 18.[facility] Allergies Active Allergy Reactions Criticality Noted Date Comments Sulfa Drugs 11/01/2012 Medications * Be aware that medications may not be up to date on this document. Alwaysverify current medications with the patient. Medication Sig Dispensed Refills Start Date End Date Status DULoxetine (CYMBALTA) 60 MG capsule Take 60 mg by mouth once daily. Active baclofen (LIORESAL) 20 MG tablet Take 20 mg by mouth 3 times daily. May cause drowsiness. Active hydrocodone-acetaminop hen (NORCO) 10-325 MG tablet Take 1 Tab by mouth every 4 hours as needed. Active gabapentin (NEURONTIN) 600 MG tablet TAKE ONE TABLET BY MOUTH 3 TIMES A DAY 90 Tab 5 11/22/2015 Active Social History Tobacco Use Types Packs/Day Years Used Date Smoking Tobacco: Never Assessed Sex and Gender Information Value Date Recorded Sex Assigned at Not on file Gender Identity Not on file Sexual Orientation Not on file Last Filed Vital Signs Vital Sign Reading Time Taken Comments Blood Pressure 118/81 10/28/2014 5:33 AM [employer] Pulse 73 10/28/2014 5:33 AM [employer] Temperature 36.9 ??C (98.5 ??F) 10/28/2014 5:33 AM CS T Respiratory Rate 18 10/28/2014 5:33 AM [employer] Oxygen Saturation 99% 10/28/2014 5:33 AM [employer] Inhaled Oxygen Concentration - - Weight 61.2 kg (135 lb) 10/27/2014 5:36 PM [employer] Height 160 cm (5' 3 ) 10/27/2014 5:36 PM [employer] Body Mass Index 23.91 10/27/2014 5:36 PM [employer] Plan of Treatment Not on file Care Teams Dope Worker Relationship Specialty Start Date End Date Shine Frederick MD PCP - General Family Medicine 11/01/12 Sophie Fish MD Orthopedic Surgery 11/01/12
--- OUTSIDE RECORDS SUMMARY | 2024-10-17 14:34 | XMS_ITS | Clinical Summary ---
Author Organization [facility] Address [address] [place] [address] Phone Care Team Providers Care Cerner Analyst Name Role Phone Unavailable Primary Care Provider Unavailabl e Social History Tobacco Use Types Packs/Day Years Used Date Smoking Tobacco: Never Assessed Comments Unknown Sex and Gender Information Value Date Recorded Sex Assigned at Not on file Legal Sex Female 2:22 PM CDT Gender Identity Not on file Sexual Orientation Not on file Plan of Treatment Not on file
--- OUTSIDE RECORDS SUMMARY | 2024-10-17 14:34 | XMS_ITS | Referral Summary ---
Author Organization [facility] Address [address] [place] [address] Care Team Providers Care Material Requirements Planning Manager Name Role Phone Shine Frederick MD Primary Care Provider [phone] Allergies Active Allergy Reactions Criticality Noted Date Comments Sulfa (Sulfonamide Antibiotics) Hives High Medications ergocalciferol (VITAMIN D) 50,000 unit capsuleIndicati ons:takes on Thursday in am Take 50,000 Units by mouth once a week [address] (NexIUM) 40 mg capsule Take 40 mg by mouth daily before breakfast 0 Active FLUoxetine (PROzac) 20 mg capsuleIndicati ons:depression Take 60 mg by mouth daily before breakfast 9 Active gabapentin (NEURONTIN) 600 mg tabletIndicatio ns:Neuropathic Pain Take 600 mg by mouth 2 (two) times a day 0 Active traZODone (DESYREL) 150 mg tabletIndicatio ns:insomnia associated with depression Take 150 mg by mouth nightly 9 Active melatonin 10 mg tablet Take 20 mg by mouth nightly Active baclofen (LIORESAL) 10 mg tablet Take 1.5 tablets (15 mg total) by mouth 3 (three) times a day 135 tablet 0 Active Additional Information Patient taking differently: 10-20 mgoral 3 times daily, 10 mg in am10 mg before mg in evening, Reported on 09/18/2020 buPROPion XL (WELLBUTRIN XL) 300 mg 24 hr tabletIndicatio ns:mood Take 150-300 mg by mouth 2 (two) times a day 300 mg in am 150 mg at noon Active acetaminophen 500 mg capsuleIndicati ons:Pain Take 2 capsules (1,000 mg total) by mouth every 6 (six) hours 50 tablet 1 Active Active Problems Problem Noted Date Diagnosed Date Risk factors for obstructive sleep apnea 021 Shortness of breath 11/29/2019 Assessment & Plan (11/30/2019 11:41 AM CDT): Most likely cause is a respiratory virus -await testing -azithromycin can be discontinued Assessment & Plan (12/01/2019 1:21 PM CDT): Likely multi-factorial in etiology. On imaging, there is evidence of pulmonary edema, as well as possible multifocal pneumonia. Pt has evidence of fluid overload clinically, with complaints of bilateral LE edema, and mild crackles on exam. Patient received Lasix, and has been on vanc/cefe for possible HAP, with good response in terms of symptoms. No longer requiring O2 by NC. ID following, suspect most likely viral in etiology. Suspect more likely pulm edema contributed to initial presentation given substantial improvement in symptoms and exam just with IV diuresis (with robust urine output), possible viral multifocal pneumonia (despite RVP negative - not sensitive and highly dependent on collection technique), less likely bacterial HAP given that she was on vanc/cefe during previous admission and only received 1 dose of CTX the day of discharge 11/27. Discussed with ID, transitioned back to CTX 2g q24h today. Encouraged continued aggresive use of incentive spirometer. Depression 11/29/2019 Assessment & Plan (11/30/2019 2:03 PM CDT): On home regimen of fluoxetine 60 mg daily, resumed while inpatient. Reports good appetite, good sleep. Mood affected lately due to series of events, otherwise okay. - Continue home regimen. - Continue to follow up as outpatient. Sleep disturbance 11/29/2019 Assessment & Plan (11/29/2019 11:07 PM CDT): On home regimen of trazodone and melatonin. - Continue home trazodone. - Start on ramelteon PRN while inpatient. Menopausal hot flushes 11/29/2019 Assessment & Plan (11/29/2019 11:08 PM CDT): On estrogen patch. - Resume while inpatient. Infection of prosthetic shoulder joint ([facility]) 11/25/2019 Overview (11/25/2019): 49 yo F with complicated history following L total shoulder arthroplasty who is seen for pji. Evaluation prior to admission was suggested cellulitis that was tx with Keflex. A later aspirate grew CITIZEN PARTICIPATION SPECIALIST in broth Assessment & Plan (11/30/2019 11:41 AM CDT): The patient is a 49 y.o. female with l shoulder pji readmitted for respiratory failure #Left shoulder PJI: once respiratory etiology determined, can de-escalate back to ceftriaxone if it is not bacterial (which I suspect it is not) Assessment & Plan (12/01/2019 1:23 PM CDT): Recently hospitalized 11/23-11/27 for left prosthetic shoulder joint infection s/p I&D, charla-arthroplasty, and IV antibiotics. Initially on Vanc/cefe post op, later narrowed to IV ceftriaxone 2g q24h on 11/27, as OR cultures grew staph lugdunensis (grimm-susceptible), with plan to continue by PICC x6 weeks. Pt was also discharged on pain regimen of Oxy 10 Q6hrs, APAP 650 Q4hrs, Baclofen 15 TID, and gabapentin 600 TID. - Ortho was consulted in the ED and is following. Appreciate recs. - Continue pain management as mentioned above. - Plan change vanc/cefe back to CTX 2g q24h today with total 6 week course of IV ABX (start date 11/23) followed by PO terminal supervisor suppression given retained hardware, per ID recs. - ASA 325 BID x 2 weeks per ortho Assessment & Plan (11/28/2019 2:17 PM CDT): 49 yo F with complicated history following L total shoulder arthroplasty who is seen for pji. Evaluation prior to admission was suggested cellulitis that was tx with Keflex. A later aspirate grew CITIZEN PARTICIPATION SPECIALIST in broth. She was taken to the OR for L shoulder revision arthroplasty, ORIF greater tuberosity on 11/23. Pt currently on vanc/cefepime. Her cultures are currently: 11/24/2019 S. lugdunensis in several cultures. Per verbal from pietro, appears to be susceptible to ceftriaxone. 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 Recommendations: - based on verbal from pietro, jess to dc vanc/cefe (done) - start ceftriaxone 2g IV q 24 hours x 6 weeks IV followed by custodial oral suppression given retained HW. - cbc w/diff, cmp weekly. ESR/CRP at weeks 3 and 6 - ID will formally sign off but continue to follow the pt peripherally while in house. - Please call with any questions or concerns. - See plan of care note dated 11/27 for detailed recommendations. 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 Overview (11/16/2019): Added automatically from request for surgery [id number] Primary localized osteoarthrosis of shoulder reg ion 09/17/2011 Osteoarthritis of shoulder 04/28/2011 Arthralgia of shoulder 01/27/2011 Herniation of intervertebral disc of cervical re gion 12/03/2009 Immunizations Name Administration Dates Next Due Influenza, Unspecified 09/21/2019 Social History Tobacco Use Types Packs/Day Years Used Date Smoking Tobacco: Every Day Cigarettes Vaping Smokeless Tobacco: Never Alcohol Use Standard Drinks/Week Comments Yes 0 (1 standard drink = 0.6 oz pur e alcohol) rare Comments No Sex and Gender Information Value Date Recorded Sex Assigned at Not on file Legal Sex Female 7:27 PM FAN INSTALLER Gender Identity Female 11/13/2020 12:11 PM FAN INSTALLER Sexual Orientation Not on file Last Filed Vital Signs Vital Sign Reading Time Taken Comments Blood Pressure 117/61 10/05/2020 12:05 PM FAN INSTALLER Pulse 82 10/05/2020 12:05 PM FAN INSTALLER Temperature 36.6 ??C (97.9 ??F) 10/05/2020 12:[address] Respiratory Rate 18 10/05/2020 12:05 PM FAN INSTALLER Oxygen Saturation 90% 10/05/2020 12:05 PM FAN INSTALLER Inhaled Oxygen Concentration - - Weight 81.6 kg (180 lb) 10/04/2020 8:35 AM FAN INSTALLER Height 160 cm (5' 3 ) 10/04/2020 8:35 AM FAN INSTALLER Body Mass Index 31.89 10/04/2020 8:35 AM FAN INSTALLER Plan of Treatment Not on file Medical Devices Implanted Type Area Car Dispatcher Device Identifier Shelf Expiration Date Model / Serial / Lot HerAMECus Medical Inc [id number] Palacos R High Viscosity Cement 40gm Bone Green - [id number] Implanted:Qty: 1 on 11/24/2019 by Stevenson Dillon MD at [facility] Left: Shoulder [employer]ae[employer] Inc [id number] 10/21/2022 [id number] / / [id number] [employer] Inc [id number] Palacos R High Viscosity Cement 40gm Bone Green - [id number] Implanted:Qty: 1 on 11/24/2019 by Stevenson Dillon MD at [facility] Left: Shoulder CSS CorpaeCoalTek [employer] Inc [id number] 07/21/2022 [id number] / / [id number] TorniComuto Inc [id number] Latitude 8-15mm Restrictor Elbow Restrictor Cement - [id number] - [id number] Implanted:Qty: 1 on 11/24/2019 by Stevenson Dillon MD at [facility] Left: Shoulder Sanaexpert [id number] 01/04/2024 [id number] / [id number] / Shanae Bi[employer] Inc [id number] 8mm 130mm Shoulder Stem Humeral Trabecular Metal Sterile Reverse - [id number] Implanted:Qty: 1 on 11/24/2019 by Stevenson Dillon MD at [facility] Left: Shoulder Shanae [employer] Inc [id number] 04/20/2029 [id number] / / [id number] Shanae [employer] Inc [id number] Reverse Shoulder 2 Taper Insert Humeral Trabecular Metal Tivanium - [id number] Implanted:Qty: 1 on 11/24/2019 by Stevenson Dillon MD at [facility] Left: Shoulder [employer] Inc [id number] 09/20/2027 [id number] / / [id number] Sh[employer] Inc [id number] Comprehensive 4.75mm 45mm Fix Angle Lock Hexagonal 3.5mm Screw - [id number] Implanted:Qty: 1 on 10/04/2020 by Stevenson Dillon MD at [facility] Left: Shoulder [employer] Inc 05/22/2023 [id number] / / [id number] [employer] Inc [id number] Comprehensive 4.75mm 45mm Fix Angle Lock Hexagonal 3.5mm Screw - [id number] Implanted:Qty: 1 on 10/04/2020 by Stevenson Dillon MD at [facility] Left: Shoulder [employer] Inc [id number] 11/24/2028 [id number] / / [id number] [employer] Inc [id number] Comprehensive 4.75mm 35mm Fix Angle Lock Hexagonal 3.5mm Screw - [id number] Implanted:Qty: 1 on 10/04/2020 by Stevenson Dillon MD at [facility] Left: Shoulder [employer] Inc [id number] 07/12/2030 [id number] / / [id number] [employer]anae [employer] Inc [id number] Comprehensive Mini Taper Adapter Baseplate Glenoid Sterile Latex - [id number] Implanted:Qty: 1 on 10/04/2020 by Stevenson Dillon MD at [facility] Left: Shoulder [employer] Inc [id number] 06/27/2030 [id number] / / [id number] Shanae [employer] Inc [id number] Comprehensive Versa-Dial 36mm Glenosphere Color Coded Shoulder - [id number] Implanted:Qty: 1 on 10/04/2020 by Stevenson Dillon MD at [facility] Left: Shoulder Sahnae [employer] Inc [id number] 08/06/2030 [id number] / / [id number] Shanae [employer] Inc [id number] 36mm H+3mm Reverse Humerus 7d Standard Liner Shoulder Trabecular - [id number] Implanted:Qty: 1 on 10/04/2020 by Stevenson Dillon MD at [facility] Left: Shoulder [employer] Inc [id number] 05/30/2028 [id number] / / [id number] [employer] Inc [id number] Comprehensive Fast Guide Baseplate Glenoid Sterile Latex Free - [id number] Implanted:Qty: 1 on 10/04/2020 by Stevenson Dillon MD at [facility] Left: Shoulder [employer] Inc [id number] 01/10/2021 [id number] / / [id number] Description:Patient matched implant [employer] Inc [id number] Comprehensive 6.5mm 50mm Central Hexagonal 3.5mm Screw Bone - [id number] Implanted:Qty: 1 on 10/04/2020 by Stevenson Dillon MD at [facility] Left: Shoulder [employer] Inc [id number] 02/25/2027 [id number] / / [id number] [employer]e [employer] Inc [id number] Comprehensive 4.75mm 40mm Fix Angle Lock Hexagonal 3.5mm Screw - [id number] Implanted:Qty: 1 on 10/04/2020 by Stevenson Dillon MD at [facility] Left: Shoulder [employer] Inc [id number] 02/08/2029 [id number] / / [id number] Explanted Type Area Car Dispatcher Device Identifier Shelf Expiration Date Model / Serial / Lot Shanae Biomet Inc [id number] Bigliani/Flato w 46mm 18mm Modular Shoulder Offset Head Humeral - [id number] Implanted:Qty: 1 on 11/24/2019 by Stevenosn Dillon MD at [facility] Explanted:Qty: 1 on 10/04/2020 by Stevenson Dillon MD at [facility] Left: Shoulder [employer] Inc [id number] 12/19/2028 [id number] / / [id number] Insurance ANTHEM ACCESS CHOICE ANTHEM ACCESS CHOICE ANTHEM PREFERRED ANTHEM ACCESS CHOICE Advance Directives For more information, please contact: [phone] * Full Code (Latest Code Status on File) Date Activated Date Inactivated Comments 10/04/2020 5:11 PM 10/05/2020 7:21 PM * Full Code Date Activated Date Inactivated Comments 11/29/2019 6:43 PM 12/01/2019 7:54 PM * Full Code Date Activated Date Inactivated Comments 11/24/2019 8:14 PM 11/28/2019 9:29 PM Care Teams Material Requirements Planning Manager Relationship Specialty Start Date End Date Shine Frederick MD [address] [place] [address] PCP - General 09/20/19
--- OUTSIDE RECORDS SUMMARY | 2024-10-17 14:34 | XMS_ITS | Clinical Summary ---
Author Organization [facility] Address [facility] [place] [address] Care Team Providers Care Medical Surgery Nurse Name Role Phone Shine Frederick MD Primary Care Provider [phone] Allergies Active Allergy Reactions Criticality Noted Date [...] daily, 10 mg in am10 mg before fneogs49 mg in evening, Reported on 09/18/2020 buPROPion [...] while inpatient. Infection of prosthetic shoulder joint ([facility]) 11/25/2019 Overview (11/25/2019): 49 yo F with complicated history following L total shoulder arthroplasty who is seen for pji. Evaluation prior to admission was suggested cellulitis that was tx with Keflex. A later aspirate grew VIDEO GAME DEVELOPER in broth Assessment & Plan (11/30/2019 11:41 [...] ABX (start date 11/23) followed by PO oil heaterman suppression given retained hardware, per ID recs. - ASA 325 BID x 2 weeks per ortho Assessment & Plan (11/28/2019 2:17 PM CDT): 49 yo F with complicated history following L total shoulder arthroplasty who is seen for pji. Evaluation prior to admission was suggested cellulitis that was tx with Keflex. A later aspirate grew VIDEO GAME DEVELOPER in broth. She was taken to the [...] hours x 6 weeks IV followed by intermediate oral suppression given retained HW. 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 Overview (11/16/2019): Added automatically from request for surgery [id number] Primary localized osteoarthrosis of shoulder reg ion 09/17/2011 Osteoarthritis of shoulder 04/28/2011 Arthralgia of shoulder 01/27/2011 Herniation of intervertebral disc of cervical re gion 12/03/2009 Immunizations Name Administration Dates Next Due Influenza, Unspecified 09/21/2019 Surgical History Surgery Date Site/Laterality Comments SHOULDER SURGERY Left ligaments SHOULDER ARTHROSCOPY 09/21/2010 - 09/20/2011 SHOULDER ARTHROPLASTY 09/21/2013 - 09/20/2014 THUMB SURGERY Right nirav DILATION AND CURETTAGE OF UTERUS 09/21/2015 - 09/20/2016 CARPAL TUNNEL RELEASE 09/21/2016 - 09/20/2017 Bilateral Family History Medical History Relation Name Comments Anesthesia problems Neg Hx Social History Tobacco Use Types Packs/Day Years Used Date Smoking Tobacco: Every Day Cigarettes Vaping Smokeless Tobacco: Never Alcohol Use Standard Drinks/Week Comments Yes 0 (1 standard drink = 0.6 oz pur e alcohol) rare Comments No Sex and Gender Information Value Date Recorded Sex Assigned at Not on file Legal Sex Female 7:27 PM BISCUIT MACHINE OPERATOR Gender Identity Female 11/13/2020 12:11 PM BISCUIT MACHINE OPERATOR Sexual Orientation Not on file Obstetrics History Last Filed Vital Signs Vital Sign Reading Time Taken Comments Blood Pressure 117/61 10/05/2020 12:05 PM BISCUIT MACHINE OPERATOR Pulse 82 10/05/2020 12:05 PM BISCUIT MACHINE OPERATOR Temperature 36.6 ??C (97.9 ??F) 10/05/2020 12:[address] Respiratory Rate 18 10/05/2020 12:05 PM BISCUIT MACHINE OPERATOR Oxygen Saturation 90% 10/05/2020 12:05 PM BISCUIT MACHINE OPERATOR Inhaled Oxygen Concentration - - Weight 81.6 kg (180 lb) 10/04/2020 8:35 AM BISCUIT MACHINE OPERATOR Height 160 cm (5' 3 ) 10/04/2020 8:35 AM BISCUIT MACHINE OPERATOR Body Mass Index 31.89 10/04/2020 8:35 AM BISCUIT MACHINE OPERATOR Plan of Treatment Health Maintenance Due Date Last Done Comments Breast Cancer Screening-Mammogram 1970 Cervical Cancer Screening 1970 Colon Cancer Screening-Colonoscopy 1970 Depression Screening 1970 Hepatitis C Screening 1970 DTaP/Tdap/Td Vaccine (1 - Tdap) 1981 Hepatitis B Screening 02/06/1988 Regular Well Visit/Exam 18-64 02/06/1988 Pneumococcal vaccine <65 (2 of 2 - PCV) 10/27/2015 0 10/27/2014 Zoster Vaccine (1 of 2) 02/06/2020 Influenza Vaccine (#1) 2024 09/21/2019, 2014 Medical Devices Implanted Type Area Temporary Help Agency Referral Clerk Device Identifier Shelf Expiration Date Model / Serial / Lot Mumaxu Network[employer] Inc [id number] Palacos R High Viscosity Cement 40gm Bone Green - [id number] Implanted:Qty: 1 on 11/24/2019 by Stevenson Dillon MD at [facility] Left: Shoulder [employer] Inc [id number] 10/21/2022 [id number] / / [id number] Her[employer] Inc [id number] Palacos R High Viscosity Cement 40gm Bone Green - [id number] Implanted:Qty: 1 on 11/24/2019 by Stevenson Dillon MD at [facility] Left: Shoulder Her[employer] Inc [id number] 07/21/2022 [id number] / / [id number] Tornier Inc [id number] Latitude 8-15mm Restrictor Elbow Restrictor Cement - [id number] - [id number] Implanted:Qty: 1 on 11/24/2019 by Stevenson Dillon MD at [facility] Left: Shoulder N-1-1 Inc [id number] 01/04/2024 [id number] / [id number] / Shanae Bi[employer] Inc [id number] 8mm 130mm Shoulder Stem Humeral Trabecular Metal Sterile Reverse - [id number] Implanted:Qty: 1 on 11/24/2019 by Stevenson Dillon MD at [facility] Left: Shoulder Shanae [employer] Inc [id number] 04/20/2029 [id number] / / [id number] Shanae [employer] Inc [id number] Reverse Shoulder 2 Taper Insert Humeral Trabecular Metal Tivanium - [id number] Implanted:Qty: 1 on 11/24/2019 by Stevenson Dillon MD at [facility] Left: Shoulder [employer]ana[employer] Inc [id number] 09/20/2027 [id number] / / [id number] Shanae [employer] Inc [id number] Comprehensive 4.75mm 45mm Fix Angle Lock Hexagonal 3.5mm Screw - [id number] Implanted:Qty: 1 on 10/04/2020 by Stevenson Dillon MD at [facility] Left: Shoulder [employer] Inc 05/22/2023 [id number] / / [id number] Shanae [employer] Inc [id number] Comprehensive 4.75mm 45mm Fix Angle Lock Hexagonal 3.5mm Screw - [id number] Implanted:Qty: 1 on 10/04/2020 by Stevenson Dillon MD at [facility] Left: Shoulder [employer] Inc [id number] 11/24/2028 [id number] / / [id number] Shanae [employer] Inc [id number] Comprehensive 4.75mm 35mm Fix Angle Lock Hexagonal 3.5mm Screw - [id number] Implanted:Qty: 1 on 10/04/2020 by Stevenson Dillon MD at [facility] Left: Shoulder [employer]e [employer] Inc [id number] 07/12/2030 [id number] / / [id number] Shanae [employer] Inc [id number] Comprehensive Mini Taper Adapter Baseplate Glenoid Sterile Latex - [id number] Implanted:Qty: 1 on 10/04/2020 by Stevenson Dillon MD at [facility] Left: Shoulder [employer] Inc [id number] 06/27/2030 [id number] / / [id number] Shanae [employer] Inc [id number] Comprehensive Versa-Dial 36mm Glenosphere Color Coded Shoulder - [id number] Implanted:Qty: 1 on 10/04/2020 by Stevenson Dillon MD at [facility] Left: Shoulder Shanae [employer] Inc [id number] 08/06/2030 [id number] / / [id number] Shanae [employer] Inc [id number] 36mm H+3mm Reverse Humerus 7d Standard Liner Shoulder Trabecular - [id number] Implanted:Qty: 1 on 10/04/2020 by Stevenson Dillon MD at [facility] Left: Shoulder [employer] Inc [id number] 05/30/2028 [id number] / / [id number] Sh[employer]e [employer] Inc [id number] Comprehensive Fast Guide Baseplate Glenoid Sterile Latex Free - [id number] Implanted:Qty: 1 on 10/04/2020 by Stevenson Dillon MD at [facility] Left: Shoulder Sh[employer] Inc [id number] 01/10/2021 [id number] / / [id number] Description:Patient matched implant Sh[employer]e [employer] Inc [id number] Comprehensive 6.5mm 50mm Central Hexagonal 3.5mm Screw Bone - [id number] Implanted:Qty: 1 on 10/04/2020 by Stevenson Dillon MD at [facility] Left: Shoulder Shanae [employer] Inc [id number] 02/25/2027 [id number] / / [id number] Shanae [employer] Inc [id number] Comprehensive 4.75mm 40mm Fix Angle Lock Hexagonal 3.5mm Screw - [id number] Implanted:Qty: 1 on 10/04/2020 by Stevenson Dillon MD at [facility] Left: Shoulder Sh[employer]e [employer] Inc [id number] 02/08/2029 [id number] / / [id number] Explanted Type Area Temporary Help Agency Referral Clerk Device Identifier Shelf Expiration Date Model / Serial / Lot Shanae Biomet Inc [id number] Bigliani/Flato w 46mm 18mm Modular Shoulder Offset Head Humeral - [id number] Implanted:Qty: 1 on 11/24/2019 by Stevenson Dillon MD at [facility] Explanted:Qty: 1 on 10/04/2020 by Stevenson Dillon MD at [facility] Left: Shoulder Shanae [employer] Inc [id number] 12/19/2028 [id number] / / [id number] Insurance CitiSent CHOICE CitiSent CHOICE ANTHEM PREFERRED ANTHEM ACCESS CHOICE Advance Directives For more information, please contact: [phone] * Full Code (Latest Code Status on File) Date Activated Date Inactivated Comments 10/04/2020 5:11 PM 10/05/2020 7:21 PM * Full Code Date Activated Date Inactivated Comments 11/29/2019 6:43 PM 12/01/2019 7:54 PM * Full Code Date Activated Date Inactivated Comments 11/24/2019 8:14 PM 11/28/2019 9:29 PM Care Teams Medical Surgery Nurse Relationship Specialty Start Date End Date Shine Frederick MD [address] [place] [address] PCP - General 09/20/19
--- OUTSIDE RECORDS SUMMARY | 2024-10-17 14:34 | XMS_ITS | Encounter Summary ---
Author Organization [facility] Address [address] [place] [address] Care Team Providers Care Journeyman Painter Name Role Phone Shine Frederick MD Primary Care Provider [phone] Encounter Details Date Type Department Care Team (Late st Contact Info) Description 10/10/2020 Documentation [facility] Case Management [id number] [place] [address] Melissa Garcia RN Social History Tobacco Use Types Packs/Day Years Used Date Smoking Tobacco: Every Day Cigarettes Vaping Smokeless Tobacco: Never Alcohol Use Standard Drinks/Week Comments Yes 0 (1 standard drink = 0.6 oz pur e alcohol) rare Comments No Sex and Gender Information Value Date Recorded Sex Assigned at Not on file Legal Sex Female 7:27 PM SUBSTATION OPERATOR APPRENTICE Gender Identity Female 11/13/2020 12:11 PM SUBSTATION OPERATOR APPRENTICE Sexual Orientation Not on file documented as of this encounter Plan of Treatment Not on file documented as of this encounter Visit Diagnoses Not on filedocumented in this encounter Additional Health Concerns Infection Onset Date Last Indicated Resolved Time COVID: Recovered Comment:07/09/2020 covid 19 PCR = positive from outside facility Not hospitalized. Last symptom= 08/09/2020 08/09/2020 09/24/2020 12/07/2020 3:05 AM C DT documented as of this encounter Care Teams Journeyman Painter Relationship Specialty Start Date End Date Shine Frederick MD [address] [place] [address] PCP - General 09/20/19 documented as of this encounter
--- OUTSIDE RECORDS SUMMARY | 2024-10-17 14:34 | XMS_ITS | Patient Health Summary ---
Author Organization [facility] Address [address] [place] [address] Care Team Providers Care Semiconductor Technician Name Role Phone Sophie Fish MD Unavailable Shine Frederick MD Primary Care Provider [phone] [facility],non-owned Affiliates and Associated Physician Practices is amultiple site organization consisting of ambulatory clinics and hospital sitesin [place], [place], [place] and [place]. This disclosure is being madepursuant to the Care Everywhere program and may not contain all information available regarding this patient. Last updated 18.[facility] Allergies * Sulfa Drugs Medications * Be aware that medications may not be up to date on this document. Alwaysverify current medications with the patient. * DULoxetine (CYMBALTA) 60 MG capsule Take 60 mg by mouth once daily. * baclofen (LIORESAL) 20 MG tablet Take 20 mg by mouth 3 times daily. May cause drowsiness. * hydrocodone-acetaminophen (NORCO) 10-325 MG tablet Take 1 Tab by mouth every 4 hours as needed. * gabapentin (NEURONTIN) 600 MG tablet(Started 11/22/2015) TAKE ONE TABLET BY MOUTH 3 TIMES A DAY 5 refills left Social History Tobacco Use Types Packs/Day Years Used Date Smoking Tobacco: Never Assessed Sex and Gender Information Value Date Recorded Sex Assigned at Not on file Gender Identity Not on file Sexual Orientation Not on file Last Filed Vital Signs Vital Sign Reading Time Taken Comments Blood Pressure 118/81 10/28/2014 5:33 AM TOOL PROFILING MACHINE SET UP OPERATOR Pulse 73 10/28/2014 5:33 AM TOOL PROFILING MACHINE SET UP OPERATOR Temperature 36.9 ??C (98.5 ??F) 10/28/2014 5:33 AM CS T Respiratory Rate 18 10/28/2014 5:33 AM TOOL PROFILING MACHINE SET UP OPERATOR Oxygen Saturation 99% 10/28/2014 5:33 AM TOOL PROFILING MACHINE SET UP OPERATOR Inhaled Oxygen Concentration - - Weight 61.2 kg (135 lb) 10/27/2014 5:36 PM TOOL PROFILING MACHINE SET UP OPERATOR Height 160 cm (5' 3 ) 10/27/2014 5:36 PM TOOL PROFILING MACHINE SET UP OPERATOR Body Mass Index 23.91 10/27/2014 5:36 PM TOOL PROFILING MACHINE SET UP OPERATOR Procedures * CBC W AUTO DIFFERENTIAL(Performed 10/28/2014) * CBC W AUTO DIFFERENTIAL(Performed 10/28/2014) * COMPREHENSIVE METABOLIC PANEL(Performed 10/28/2014) * PHOSPHORUS BLOOD(Performed 10/28/2014) * MAGNESIUM BLOOD(Performed 10/28/2014) * HCG URINE QUALITATIVE - POCT (IP) SL(Performed 10/27/2014) * DRUG ABUSE PANEL 10-20+ETHANOL URINE NO CONFIRM(Performed 10/27/2014) * URINALYSIS REFLEX TO MICROSCOPIC NO CULTURE(Performed 10/27/2014) * CT FACIAL BONES WO CONTRAST(Performed 10/27/2014) * XR CHEST 1VW PORTABLE(Performed 10/27/2014) * CT HEAD WO CONTRAST(Performed 10/27/2014) * CT CERVICAL SPINE WO CONTRAST(Performed 10/27/2014) * XR CHEST 1VW PORTABLE(Performed 10/27/2014) * ACETAMINOPHEN LEVEL(Performed 10/27/2014) * SALICYLATE LEVEL BLOOD(Performed 10/27/2014) * LITHIUM LEVEL(Performed 10/27/2014) * CK + CKMB PANEL(Performed 10/27/2014) * TROPONIN I(Performed 10/27/2014) * ALCOHOL ETHYL BLOOD(Performed 10/27/2014) * COMPREHENSIVE METABOLIC PANEL(Performed 10/27/2014) * CBC W AUTO DIFFERENTIAL(Performed 10/27/2014) * CBC W AUTO DIFFERENTIAL(Performed 10/27/2014) * EKG 12-LEAD(Performed 10/27/2014) Results * CBC W AUTO DIFFERENTIAL (10/28/2014 5:15 AM TOOL PROFILING MACHINE SET UP OPERATOR) Only the most recent of4 resultswithin the time period is included. Blood specimen (specimen) BLOOD SPECIMEN / Unknown 10/28/2014 5:15 AM TOOL PROFILING MACHINE SET UP OPERATOR Narrative [facility] - 10/28/2014 6:49 AM TOOL PROFILING MACHINE SET UP OPERATOR The following orders were created for panel order CBC w Differential. Procedure ? Abnormality ? Status ? --------- ? ------ ? CBC WITH DIFFERENTIAL[[id number]] ? Abnormal ?Final result ? Please view results for these tests on the individual orders. Yariel Edouard MD LAB - HEMATOLOGY ORD ERABLES Performing Organization Address City/State/[facility] Co de Phone Number [facility] [address] [place] [address], [facility] * (ABNORMAL) COMPREHENSIVE METABOLIC PANEL (10/28/2014 5:15 AM TOOL PROFILING MACHINE SET UP OPERATOR) Only the most recent of2 resultswithin the time period is included. BUN 11 7 - 26 mg/dL [facility] Creatinine 0.7 0.6 - 1.2 mg/dL [facility] Sodium 139 136 - 145 mmol/L [facility] Potassium 3.9 3.5 - 4.5 mmol/L [facility] Chloride 107 98 - 107 mmol/L [facility] CO2 20(L) 22 - 29 mmol/L [facility] Glucose 88 70 - 115 mg/dL [facility] Calcium 8.4 8.4 - 10.2 mg/dL [facility] Protein Total 6.0 6.0 - 8.3 g/dL [facility] Albumin 2.7(L) 3.4 - 5.0 g/dL [facility] Bilirubin Total 0.7 0.2 - 1.2 mg/dL [facility] Alkaline Phosphatase 68 40 - 150 Units/L [facility] ALT 13 0 - 55 Units/L [facility] AST 17 5 - 34 Units/L [facility] Anion Gap 16 8 - 18 [facility] BUN/Creatinine Ratio 16 7 - 23 [facility] Osmolality Calculated 272 270 - 300 mOsm/kg [facility] Albumin/Globulin Ratio 0.8(L) 1.1 - 2.3 [facility] eGFR >60 >60 mL/min/1.7 3 m2 [facility] Blood specimen (specimen) BLOOD SPECIMEN / Unknown 10/28/2014 5:15 AM TOOL PROFILING MACHINE SET UP OPERATOR 10/28/2014 5:57 AM TOOL PROFILING MACHINE SET UP OPERATOR Yariel Edouard MD LAB - CHEMISTRY [facility] [address] [phone] * PHOSPHORUS BLOOD (10/28/2014 5:15 AM TOOL PROFILING MACHINE SET UP OPERATOR) Phosphorus 3.0 2.3 - 4.7 mg/dL [facility] Blood specimen (specimen) BLOOD SPECIMEN / Unknown 10/28/2014 5:15 AM TOOL PROFILING MACHINE SET UP OPERATOR 10/28/2014 5:57 AM TOOL PROFILING MACHINE SET UP OPERATOR Yariel Edouard MD LAB - CHEMISTRY [facility] Performing Organization Address City/[facility]/ZIP Co de Phone Number [address] [phone] * MAGNESIUM BLOOD (10/28/2014 5:15 AM TOOL PROFILING MACHINE SET UP OPERATOR) Magnesium 2.2 1.6 - 2.6 mg/dL [facility] Blood specimen (specimen) BLOOD SPECIMEN / Unknown 10/28/2014 5:15 AM TOOL PROFILING MACHINE SET UP OPERATOR 10/28/2014 5:57 AM TOOL PROFILING MACHINE SET UP OPERATOR Yariel Edouard MD LAB - CHEMISTRY [facility] Performing Organization Address City/[facility]/ZIP Co de Phone Number [address] [phone] * HCG URINE QUALITATIVE - POCT (IP) [facility] (10/27/2014 4:00 AM TOOL PROFILING MACHINE SET UP OPERATOR) Test Urine Negative [facility] Urine specimen (specimen) 10/27/2014 4:00 AM TOOL PROFILING MACHINE SET UP OPERATOR Narrative [facility] - 10/27/2014 4:00 AM TOOL PROFILING MACHINE SET UP OPERATOR Negative Noel Clarke MD LAB - POINT OF CARE ORDERABLES [facility] * (ABNORMAL) DRUG ABUSE PANEL 10-20+ETHANOL URINE NO CONFIRM (10/27/2014 4:00 AM TOOL PROFILING MACHINE SET UP OPERATOR) Amphetamines Screen Urine Negative Negative : < 1000 ng/mL [facility] Barbiturates Screen Urine Negative Negative : < 200 ng/mL [facility] Benzodiazepine Screen Urine Negative Negative : < 200 ng/mL [facility] Opiates Urine Positive(A) Negative : < 300 ng/mL [facility] Comment: Positive urine opiate screening results should be confirmed by another generally accepted non-immunological method such as gas chromatography or mass spectrometry. ? Cocaine Metabolites Urine Negative Negative : < 300 ng/mL [facility] Phencyclidine Screen Urine Negative Negative : < 25 ng/ml [facility] Cannabinoids Screen Urine Negative Negative : <50 ng/mL [facility] Methadone Screen Urine Negative Negative : < 300 ng/mL [facility] Urine specimen (specimen) URINE / Unknown 10/27/2014 4:00 AM TOOL PROFILING MACHINE SET UP OPERATOR 10/27/2014 4:00 AM TOOL PROFILING MACHINE SET UP OPERATOR Narrative [facility] - 10/27/2014 4:36 AM TOOL PROFILING MACHINE SET UP OPERATOR The Urine Toxicology Screening Panel does not screen for Propoxyphene, Meprobamate, Carisoprodol, Trazodone, [id number] medications and/or volatiles (Acetone, Isopropanol, Methanol or Ethylene Glycol). Ethanol, Salicylate, Acetaminophen, Tricyclic Antidepressants and several therapeutic drugs may be individually assayed in serum or plasma specimen. Toxicology testing by the [facility] is an aid to medical diagnosis and treatment of patients. No documented chain of custody was maintained. Results are intended to be used for clinical purposes only. ? Noel Clarke MD LAB - URINE CHEMISTR Y ORDERABLES [facility] [address] [place] [address] * (ABNORMAL) URINALYSIS REFLEX TO MICROSCOPIC NO CULTURE (10/27/2014 4:00 AM TOOL PROFILING MACHINE SET UP OPERATOR) Color UA Yellow Straw, Yellow, Colorless, Light Yellow [facility] Clarity UA Clear Clear [facility] Specific [place] UA 1.010 1.001 - 1.030 [facility] pH UA 6.0 5.0 - 8.0 [facility] Protein UA Trace(A) <=20 mg/dL [facility] Glucose UA Negative Negative mg/dL [facility] Ketone UA Negative Negative mg/dL [facility] Bilirubin UA Negative Negative mg/dL [facility] Blood UA Negative Negative [facility] Nitrite UA Negative Negative [facility] Leukocyte Esterase Negative Negative [facility] Urobilinogen UA <2.0 <2.0 mg/dL [facility] RBC UA 7 0 - 8 /HPF [facility] WBC UA 1 0 - 2 /HPF [facility] Bacteria UA Rare Rare, Occasional, None /HPF [facility] Squamous Epithelial Cells UA 1 0 - 1 /HPF [facility] Mucus UA Occasional( A) None /LPF [facility] Urine specimen (specimen) 10/27/2014 4:00 AM TOOL PROFILING MACHINE SET UP OPERATOR 10/27/2014 4:00 AM TOOL PROFILING MACHINE SET UP OPERATOR Noel Clarke MD LAB - URINALYSIS ORD ERABLES [facility] [address] [phone] * CT FACIAL BONES WO CONTRAST (10/27/2014 3:46 AM TOOL PROFILING MACHINE SET UP OPERATOR) Anatomical Region Laterality Modality Head Other Impressions 10/27/2014 9:07 AM TOOL PROFILING MACHINE SET UP OPERATOR IMPRESSION: 1. No acute intracranial process. 2. No acute facial bone fractures identified. 3. No evidence of acute fracture in the cervical spine. 4. 4mm left apical lung nodule. This could be further evaluated with a [address] without contrast, if risk factors for lung cancer are present. Preliminary findings were discussed with Dr. Pereira by Dr. Johnson on 10/27/2014 at 2:53 AM. This report was approved ??by Enrique Capone ?? on 10/27/2014 8:44 AM . I, Dr. WOODY HENDRICKSON M.D. have personally reviewed and interpreted this examination/study. This report was electronically signed by WOODY HENDRICKSON M.D. ??on 10/27/2014 9:07 AM . Narrative 10/27/2014 9:07 AM TOOL PROFILING MACHINE SET UP OPERATOR EXAMINATION: 1. Computed tomography (CT) of the head without contrast 2. CT of the maxillofacial bones, orbits, and paranasal sinuses without contrast 3. CT of the cervical spine without contrast HISTORY: 44-year-old female with history of narcotic abuse presents with altered mental status and left forehead/eyebrow laceration after falling out of bed. TECHNIQUE: CT of the head, cervical spine, and maxillofacial bones, orbits, and paranasal sinuses was performed without contrast according to standard protocol. FINDINGS: No prior study is available for comparison. Head: Motion artifact is present which limits detection of subtle intracranial abnormalities. No acute intra- or extra-axial fluid collections are identified. The ventricles are of normal size, shape, and morphology. The basilar cisterns are patent. No mass effect or midline shift is seen. The pedersen-white matter differentiation is normal. No acute fracture is identified. Maxillofacial: The orbits appear normal. Other than mild bilateral maxillary and ethmoid sinus disease, the paranasal sinuses are clear. The hard palate, mandible, and temporomandibular joints appear normal. ??No facial bone fractures are identified. The mastoid air cells are clear. A soft tissue laceration is seen overlying the left orbit. A dental appliance is seen associated with the maxilla. Cervical spine: Motion artifact is present which limits the ability to detect subtle fractures. The alignment is normal. Vertebral bodies are normal in height without evidence of acute fracture. The craniocervical junction is normal. The intervertebral discs appear normal. No central canal stenosis is seen. The facets appear normal. The uncovertebral joints appear normal. No neural foraminal stenosis is seen. A left apical nodule measuring 4 mm is seen. This could be further evaluated in 12 months with noncontrast chest CT if risk factors for lung cancer are present. Procedure Note Woody Hendrickson MD - 12/19/2017 EXAMINATION: 1. Computed tomography (CT) of the head without contrast 2. CT of the maxillofacial bones, orbits, and paranasal sinuses withoutcontrast 3. CT of the cervical spine without contrast HISTORY: 44-year-old female with history of narcotic abuse presents withaltered mental status and left forehead/eyebrow laceration after fallingout of bed. TECHNIQUE: CT of the head, cervical spine, and maxillofacial bones,orbits, and paranasal sinuses was performed without contrast according tostandard protocol. FINDINGS: No prior study is available for comparison. Head: Motion artifact is present which limits detection of subtle intracranialabnormalities. No acute intra- or extra-axial fluid collections areidentified. The ventricles are of normal size, shape, and morphology. Thebasilar cisterns are patent. No mass effect or midline shift is seen. The pedersen-white matter differentiation isnormal. No acute fracture is identified. Maxillofacial: The orbits appear normal. Other than mild bilateral maxillary and ethmoidsinus disease, the paranasal sinuses are clear. The hard palate, mandible,and temporomandibular joints appear normal. No facial bone fractures areidentified. The mastoid air cells are clear. A soft tissue laceration is seen overlying the leftorbit. A dental appliance is seen associated with the maxilla. Cervical spine: Motion artifact is present which limits the ability to detect subtlefractures. The alignment is normal. Vertebral bodies are normal in heightwithout evidence of acute fracture. The craniocervical junction is normal.The intervertebral discs appear normal. No central canal stenosis is seen. The facets appear normal. Theuncovertebral joints appear normal. No neural foraminal stenosis is seen.A left apical nodule measuring 4 mm is seen. This could be furtherevaluated in 12 months with noncontrast chest CT if risk factors for lung cancer are present. IMPRESSION IMPRESSION: 1. No acute intracranial process. 2. No acute facial bone fractures identified. 3. No evidence of acute fracture in the cervical spine. 4. 4mm left apical lung nodule. This could be further evaluated with a 12month followup chest CT without contrast, if risk factors for lung cancerare present. Preliminary findings were discussed with Dr. Pereira by Dr. Johnson on10/27/2014 at 2:53 AM. This report was approved by Enrique Capone on 10/27/2014 8:[address] WOODY Ag M.D. have personally reviewed and interpreted thisexamination/study. This report was electronically signed by WOODY HENDRICKSON M.D. on 10/27/20149:07 AM . Noel Clarke MD CT ORDERABLES * XR CHEST 1VW PORTABLE (10/27/2014 3:27 AM TOOL PROFILING MACHINE SET UP OPERATOR) Only the most recent of2 resultswithin the time period is included. Anatomical Region Laterality Modality Chest Other Impressions 10/27/2014 12:03 PM TOOL PROFILING MACHINE SET UP OPERATOR Impression: No acute pulmonary process. Dictated by Darian Pantoja M.D. (Stock Associate) This report was approved ??by Darian Pantoja ?? on 10/27/2014 10:[address] VERA Ag MD have personally reviewed and interpreted this examination/study. This report was electronically signed by Dr. VERA PAIGE MD ??on 10/27/2014 12:03 PM . Narrative 10/27/2014 12:03 PM TOOL PROFILING MACHINE SET UP OPERATOR Exam: PX CHEST 1 VW. Date: 10/27/2014 3:27 AM. Comparison: Comparison is made with a radiograph of the chest performed on the same day at 2:23 AM. History: Status post intubation. Findings: Endotracheal tube terminates approximately 3 cm above the yaa. An enteric tube loops and terminates in the stomach. There is no consolidation, pleural effusion, or pneumothorax. The cardiomediastinal silhouette is normal. Left humeral arthroplasty is partially imaged. Procedure Note Vera Paige MD - 12/19/2017 Exam: PX CHEST 1 VW. Date: 10/27/2014 3:27 AM. Comparison: Comparison is made with a radiograph of the chest performed onthe same day at 2:23 AM. History: Status post intubation. Findings: Endotracheal tube terminates approximately 3 cm above the yaa. Anenteric tube loops and terminates in the stomach. There is no consolidation, pleural effusion, or pneumothorax. Thecardiomediastinal silhouette is normal. Left humeral arthroplasty ispartially imaged. IMPRESSION Impression: No acute pulmonary process. Dictated by Darian Pantoja M.D. (Stock Associate) This report was approved by Darian Pantoja on 10/27/2014 10:[address] VERA Ag MD have personally reviewed and interpreted thisexamination/study. This report was electronically signed by Dr. VERA PAIGE MD on 10/27/201412:03 PM . Noel Clarke MD DIAGNOSTIC IMAGING O RDERABLES * CT CERVICAL SPINE WO CONTRAST (10/27/2014 2:36 AM TOOL PROFILING MACHINE SET UP OPERATOR) Anatomical Region Laterality Modality Spine Other Impressions 10/27/2014 9:07 AM TOOL PROFILING MACHINE SET UP OPERATOR IMPRESSION: 1. No acute intracranial process. 2. No acute facial bone fractures identified. 3. No evidence of acute fracture in the cervical spine. 4. 4mm left apical lung nodule. This could be further evaluated with a [address] without contrast, if risk factors for lung cancer are present. Preliminary findings were discussed with Dr. Pereira by Dr. Johnson on 10/27/2014 at 2:53 AM. This report was approved ??by Enrique Capone ?? on 10/27/2014 8:[address] WOODY Ag M.D. have personally reviewed and interpreted this examination/study. This report was electronically signed by WOODY HENDRICKSON M.D. ??on 10/27/2014 9:07 AM . Narrative 10/27/2014 9:07 AM TOOL PROFILING MACHINE SET UP OPERATOR EXAMINATION: 1. Computed tomography (CT) of the head without contrast 2. CT of the maxillofacial bones, orbits, and paranasal sinuses without contrast 3. CT of the cervical spine without contrast HISTORY: 44-year-old female with history of narcotic abuse presents with altered mental status and left forehead/eyebrow laceration after falling out of bed. TECHNIQUE: CT of the head, cervical spine, and maxillofacial bones, orbits, and paranasal sinuses was performed without contrast according to standard protocol. FINDINGS: No prior study is available for comparison. Head: Motion artifact is present which limits detection of subtle intracranial abnormalities. No acute intra- or extra-axial fluid collections are identified. The ventricles are of normal size, shape, and morphology. The basilar cisterns are patent. No mass effect or midline shift is seen. The pedersen-white matter differentiation is normal. No acute fracture is identified. Maxillofacial: The orbits appear normal. Other than mild bilateral maxillary and ethmoid sinus disease, the paranasal sinuses are clear. The hard palate, mandible, and temporomandibular joints appear normal. ??No facial bone fractures are identified. The mastoid air cells are clear. A soft tissue laceration is seen overlying the left orbit. A dental appliance is seen associated with the maxilla. Cervical spine: Motion artifact is present which limits the ability to detect subtle fractures. The alignment is normal. Vertebral bodies are normal in height without evidence of acute fracture. The craniocervical junction is normal. The intervertebral discs appear normal. No central canal stenosis is seen. The facets appear normal. The uncovertebral joints appear normal. No neural foraminal stenosis is seen. A left apical nodule measuring 4 mm is seen. This could be further evaluated in 12 months with noncontrast chest CT if risk factors for lung cancer are present. Procedure Note Woody Hendrickson MD - 12/19/2017 EXAMINATION: 1. Computed tomography (CT) of the head without contrast 2. CT of the maxillofacial bones, orbits, and paranasal sinuses withoutcontrast 3. CT of the cervical spine without contrast HISTORY: 44-year-old female with history of narcotic abuse presents withaltered mental status and left forehead/eyebrow laceration after fallingout of bed. TECHNIQUE: CT of the head, cervical spine, and maxillofacial bones,orbits, and paranasal sinuses was performed without contrast according tostandard protocol. FINDINGS: No prior study is available for comparison. Head: Motion artifact is present which limits detection of subtle intracranialabnormalities. No acute intra- or extra-axial fluid collections areidentified. The ventricles are of normal size, shape, and morphology. Thebasilar cisterns are patent. No mass effect or midline shift is seen. The pedersen-white matter differentiation isnormal. No acute fracture is identified. Maxillofacial: The orbits appear normal. Other than mild bilateral maxillary and ethmoidsinus disease, the paranasal sinuses are clear. The hard palate, mandible,and temporomandibular joints appear normal. No facial bone fractures areidentified. The mastoid air cells are clear. A soft tissue laceration is seen overlying the leftorbit. A dental appliance is seen associated with the maxilla. Cervical spine: Motion artifact is present which limits the ability to detect subtlefractures. The alignment is normal. Vertebral bodies are normal in heightwithout evidence of acute fracture. The craniocervical junction is normal.The intervertebral discs appear normal. No central canal stenosis is seen. The facets appear normal. Theuncovertebral joints appear normal. No neural foraminal stenosis is seen.A left apical nodule measuring 4 mm is seen. This could be furtherevaluated in 12 months with noncontrast chest CT if risk factors for lung cancer are present. IMPRESSION IMPRESSION: 1. No acute intracranial process. 2. No acute facial bone fractures identified. 3. No evidence of acute fracture in the cervical spine. 4. 4mm left apical lung nodule. This could be further evaluated with a 12month followup chest CT without contrast, if risk factors for lung cancerare present. Preliminary findings were discussed with Dr. Pereira by Dr. Johnson on10/27/2014 at 2:53 AM. This report was approved by Enrique Capone on 10/27/2014 8:44 AM . I, Dr. WOODY HENDRICKSON M.D. have personally reviewed and interpreted thisexamination/study. This report was electronically signed by WOODY HENDRICKSON M.D. on 10/27/20149:07 AM . Noel Clarke MD CT ORDERABLES * CT HEAD WO CONTRAST (10/27/2014 2:36 AM TOOL PROFILING MACHINE SET UP OPERATOR) Anatomical Region Laterality Modality Head Other Impressions 10/27/2014 9:07 AM TOOL PROFILING MACHINE SET UP OPERATOR IMPRESSION: 1. No acute intracranial process. 2. No acute facial bone fractures identified. 3. No evidence of acute fracture in the cervical spine. 4. 4mm left apical lung nodule. This could be further evaluated with a [address] without contrast, if risk factors for lung cancer are present. Preliminary findings were discussed with Dr. Pereira by Dr. Johnson on 10/27/2014 at 2:53 AM. This report was approved ??by Enrique Capone ?? on 10/27/2014 8:44 AM . I, Dr. WOODY HENDRICKSON M.D. have personally reviewed and interpreted this examination/study. This report was electronically signed by WOODY HENDRICKSON M.D. ??on 10/27/2014 9:07 AM . Narrative 10/27/2014 9:07 AM TOOL PROFILING MACHINE SET UP OPERATOR EXAMINATION: 1. Computed tomography (CT) of the head without contrast 2. CT of the maxillofacial bones, orbits, and paranasal sinuses without contrast 3. CT of the cervical spine without contrast HISTORY: 44-year-old female with history of narcotic abuse presents with altered mental status and left forehead/eyebrow laceration after falling out of bed. TECHNIQUE: CT of the head, cervical spine, and maxillofacial bones, orbits, and paranasal sinuses was performed without contrast according to standard protocol. FINDINGS: No prior study is available for comparison. Head: Motion artifact is present which limits detection of subtle intracranial abnormalities. No acute intra- or extra-axial fluid collections are identified. The ventricles are of normal size, shape, and morphology. The basilar cisterns are patent. No mass effect or midline shift is seen. The pedersen-white matter differentiation is normal. No acute fracture is identified.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
--- OUTSIDE RECORDS SUMMARY | 2024-10-17 14:34 | XMS_ITS | Clinical Summary ---
Author Organization [facility] Address [address] [place] [address] Care Team Providers Care Museum Tour Guide Name Role Phone Sophie Fish MD Unavailable [phone] Shine Frederick MD Primary Care Provider Source Comments [facility],non-owned Affiliates and Associated Physician Practices is amultiple site organization consisting of ambulatory clinics and hospital sitesin [place], [place], [place] and [place]. This disclosure is being madepursuant to the Care Everywhere program and may not contain all information available regarding this patient. Last updated 18.[facility] Allergies Active Allergy Reactions Criticality Noted Date [...] Comments Blood Pressure 118/81 10/28/2014 5:33 AM [facility] Pulse 73 10/28/2014 5:33 AM [facility] Temperature 36.9 ??C (98.5 ??F) 10/28/2014 5:33 AM CS T Respiratory Rate 18 10/28/2014 5:33 AM [facility] Oxygen Saturation 99% 10/28/2014 5:33 AM [facility] Inhaled Oxygen Concentration - - Weight 61.2 kg (135 lb) 10/27/2014 5:36 PM [facility] Height 160 cm (5' 3 ) 10/27/2014 5:36 PM [facility] Body Mass Index 23.91 10/27/2014 5:36 PM [facility] Plan of Treatment Health Maintenance Due Date Last Done Comments COLOGUARD (AGES 45-75) - COL ON CA SCREENING 1970 COLON MONITORING 1970 COLONOSCOPY - COLON CA SCREENING 1970 CT COLONOGRAPHY - COLON CA SCREENING 1970 Colorectal Cancer Screening 1970 FIT - COLON CA SCREENING 1970 FLEX SIG - COLON CA SCREENING 1970 LIPID TESTING 1970 MAMMOGRAM 1970 PAP SMEAR 1970 HIV SCREENING 1985 HEPATITIS C SCREENING 02/01/1988 DTAP/TDAP/TD VACCINES (1 - Tdap) 1989 HEPATITIS B VACCINE (1 of 3 - 19+ 3-dose series) 1989 PNEUMOCOCCAL VACCINE 50+ (1 of 1 - PCV) 02/06/2020 ZOSTER VACCINE (1 of 2) 02/06/2020 COVID-19 VACCINE ( - 2023-2 5 season) 2024 INFLUENZA VACCINE (#1) 2024 10/27/2014 DEPRESSION SCREENING 09/21/2024 HIB VACCINE Aged Out No longer eligi ble based on patient's age to complete this topic HPV VACCINE Aged Out No longer eligi ble based on patient's age to complete this topic MENINGOCOCCAL (Group B) VACCINE Aged Out No longer eligible based on patient's age to complete this topic MENINGOCOCCAL VACCINE Aged Out No terrance libby eligible based on patient's age to complete this topic PNEUMOCOCCAL VACCINE Aged Out No long er eligible based on patient's age to complete this topic Care Teams Museum Tour Guide Relationship Specialty Start Date End Date Shine Frederick MD PCP - General Family Medicine 11/01/12 Sophie Fish MD Orthopedic Surgery 11/01/12
== END 2024-10-17 13:46 | disposition home or self-care (01) ==
PROVIDERS: PCP Family Medicine; Visit Provider Podiatrist Foot & Ankle Surgery
DX: R94.31 Abnormal electrocardiogram [ECG] [EKG] (principal); R03.0 Elevated blood-pressure reading, without diagnosis of hypertension
CPT/HCPCS: 93005

== ENCOUNTER 2025-02-25 12:52 | Emergency (ER) | payer BC, SELFPAY ==
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
[2025-02-25 13:02] VITALS: BP 97/55; PULSE 77; RESP 16; TEMP 36.6; O2SAT 99
== END 2025-02-25 14:05 | disposition home or self-care (01) ==
PROVIDERS: Emergency Provider Nurse Practitioner Family; PCP Family Medicine
DX: S80.12XA Contusion of left lower leg, initial encounter (principal); W22.10XA Striking against or struck by unspecified automobile airbag, initial encounter; V49.60XA Unspecified car occupant injured in collision with unspecified motor vehicles in traffic accident, initial encounter; F17.210 Nicotine dependence, cigarettes, uncomplicated; M19.90 Unspecified osteoarthritis, unspecified site; Z96.612 Presence of left artificial shoulder joint
CPT/HCPCS: 73590; 99213; G0463

== ENCOUNTER 2025-03-09 11:22 | Outpatient (CLI) | payer BC, SELFPAY ==
--- NOTE | ~2025-03-09 | XR_ITS ---
AP and lateral views of the right hip Clinical history: Pain Findings: No acute fracture or dislocation is seen. Osseous alignment is anatomic. Right hip joint is intact. Soft tissues are unremarkable. Impression: No significant abnormality is seen. Reviewed, dictated and finalized at location M. Impression: No significant abnormality is seen.
== END 2025-03-09 11:23 | disposition home or self-care (01) ==
PROVIDERS: PCP Family Medicine; Visit Provider Family Medicine
DX: M25.551 Pain in right hip (principal)
CPT/HCPCS: 73502

== ENCOUNTER 2025-06-27 12:21 | Outpatient (CLI) | payer BC, SELFPAY ==
--- NOTE | 2025-06-27 | ECG_ITS ---
Test Date: 2025-06-27 12:53:14 Measurements Intervals [place] Rate: 85 P: 49 DE: 143 QRS: 36 QRSD: 90 T: 42 QT: 356 QTc: 424 Interpretive Statements SINUS RHYTHM BASELINE ARTIFACT- II, III, AVL, AVF NORMAL ECG Compared to ECG 10/17/2024 14:04:14 No significant changes Electronically Signed On 06-27-2025 12:57:18 CDT by Everardo Salazar D.O.
[2025-06-27 13:08] LABS: Alanine Aminotransferase 29 U/L (6-35); Albumin Level 4.0 g/dL (3.5-5.1); Alkaline Phosphatase 63 U/L (38-126); Anion Gap 5 mmol/L (4-12); Aspartate Amino Transferase 32 U/L (14-36); Bilirubin,Total 0.6 mg/dL (0.2-1.3); Blood Urea Nitrogen 15 mg/dL (7-17); Calcium 9.2 mg/dL (8.4-10.2); Carbon Dioxide 27 mmol/L (22-30); Chloride 104 mmol/L (98-107); Estimated Glomerular Filt Rate > 60; Glucose 101 mg/dL (65-110); Potassium 4.2 mmol/L (3.4-5.0); Sodium 136 mmol/L (137-145); Total Protein 6.6 g/dL (6.3-8.2)
--- OUTSIDE RECORDS SUMMARY | 2025-06-27 13:16 | XMS_ITS | Clinical Summary ---
Author Organization [facility] Address [address] [place] [address] Phone Care Team Providers Care Wet Process Assistant Head Miller Name Role Phone Unavailable Primary Care Provider [...]
--- OUTSIDE RECORDS SUMMARY | 2025-06-27 13:16 | XMS_ITS | Encounter Summary ---
Author Organization [facility] Healthcare Address [address] [place] [address] Care Team Providers Care Dewaterer Operator Name Role Phone Shine Frederick MD Primary Care Provider [phone] Encounter Details Date Type Department Care Team (Late st Contact Info) Description 10/10/[address] [facility] [id number] [place] [address] Melissa Garcia RN Social History Tobacco Use Types Packs/Day Years Used Date Smoking Tobacco: Every Day Cigarettes Vaping Smokeless Tobacco: Never Alcohol Use Standard Drinks/Week Comments Yes 0 (1 standard drink = 0.6 oz pur e alcohol) rare Comments No Sex and Gender Information Value Date Recorded Sex Assigned at Not on file Legal Sex Female 7:27 PM SPANISH LANGUAGE LECTURER Gender Identity Female 11/13/2020 12:11 PM SPANISH LANGUAGE LECTURER Sexual Orientation Not on file documented as [...] documented as of this encounter Care Teams Dewaterer Operator Relationship Specialty Start Date End Date Shine Frederick MD [address] [place] [id number] PCP - General 09/20/19 documented as of this encounter
--- OUTSIDE RECORDS SUMMARY | 2025-06-27 13:16 | XMS_ITS | Clinical Summary ---
Author Organization [facility] Address [facility] [place] [address] Care Team Providers Care Programming Equipment Operator Name Role Phone Shine Frederick MD Primary Care Provider [phone] Allergies Active Allergy Reactions Criticality Noted Date [...] 6 (six) hours 50 tablet 1 Active hyoscyamine (LEVSIN) 0.125 mg tablet 5 Active Wegovy 2.4 mg/0.75 mL auto-injector 5 Active progesterone (PROMETRIUM) 100 mg capsule TAKE 1-2 CAPSULES BY MOUTH DAILY IN THE EVENING 5 Active methylPREDNISol one (MEDROL DOSEPACK) 4 mg Dosepack Use as directed by package instructions 21 tablet 5 Active Active Problems Problem Noted Date Diagnosed [...] while inpatient. Infection of prosthetic shoulder joint 0 Overview (11/25/2019): 49 yo F with complicated history following L total shoulder arthroplasty who is seen for pji. Evaluation prior to admission was suggested cellulitis that was tx with Keflex. A later aspirate grew MANAGER TRADE in broth Assessment & Plan (11/30/2019 11:41 [...] ABX (start date 11/23) followed by PO intermediate suppression given retained hardware, per ID recs. - ASA 325 BID x 2 weeks per ortho Assessment & Plan (11/28/2019 2:17 PM CDT): 49 yo F with complicated history following L total shoulder arthroplasty who is seen for pji. Evaluation prior to admission was suggested cellulitis that was tx with Keflex. A later aspirate grew MANAGER TRADE in broth. She was taken to the OR for L shoulder revision arthroplasty, ORIF greater tuberosity on 11/23. Pt currently on vanc/cefepime. Her cultures are currently: 11/24/2019 S. lugdunensis in several cultures. Per verbal from micro, appears to be susceptible to ceftriaxone. 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 Recommendations: - based on verbal from pietro, jess to dc vanc/cefe (done) - start ceftriaxone 2g IV q 24 hours x 6 weeks IV followed by ad terminal makeup operator oral suppression given retained HW. 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 Overview (11/16/2019): Added automatically from request for surgery [id number] Primary localized osteoarthrosis of shoulder reg ion 09/17/2011 Osteoarthritis of shoulder 04/28/2011 Arthralgia of shoulder 01/27/2011 Herniation of intervertebral disc of cervical re gion 12/03/2009 Immunizations Immunization Administration Dates Next Due Influenza, Unspecified 09/21/2019 [...] on file Legal Sex Female 7:27 PM PHARMACY TECH Gender Identity Female 11/13/2020 12:11 PM PHARMACY TECH Sexual Orientation Not on file Obstetrics History Last Filed Vital Signs Vital Sign Reading Time Taken Comments Blood Pressure 117/61 10/05/2020 12:05 PM PHARMACY TECH Pulse 82 10/05/2020 12:05 PM PHARMACY TECH Temperature 36.6 C (97.9 F) 10/05/2020 12:05 PM PHARMACY TECH Respiratory Rate 18 10/05/2020 12:05 PM PHARMACY TECH Oxygen Saturation 90% 10/05/2020 12:05 PM PHARMACY TECH Inhaled Oxygen Concentration - - Weight 65.8 kg (145 lb) 12/20/2024 3:52 PM CDT Height 160 cm (5' 3) 12/20/2024 3:52 PM CDT Body Mass Index 25.69 12/20/2024 3:52 PM CDT Plan of Treatment Health Maintenance Due Date [...] (1 of 2) 02/06/2020 Influenza Vaccine (#1) 2025 09/21/2019, 2014 Medical Devices Implanted Type Area Pipe Roller Device Identifier Shelf Expiration Date Model / Serial / Lot [employer] [id number] Palacos R High Viscosity Cement 40gm Bone Green - [id number] Implanted:Qty: 1 on 11/24/2019 by Stevenson Dillon MD at [facility] Left: Shoulder [employer] [id number] 10/21/2022 [id number] / / [id number] [employer] [id number] Palacos R High Viscosity Cement 40gm Bone Green - [id number] Implanted:Qty: 1 on 11/24/2019 by Stevenson Dillon MD at [facility] Left: Shoulder [employer] [id number] 07/21/2022 [id number] / / [id number] [employer] [id number] Latitude 8-15mm Restrictor Elbow Restrictor Cement - [id number] - [id number] Implanted:Qty: 1 on 11/24/2019 by Stevenson Dillon MD at [facility] Left: Shoulder [employer] [id number] 01/04/2024 [id number] / [id number] / [employer] [id number] 8mm 130mm Shoulder Stem Humeral Trabecular Metal Sterile Reverse - [id number] Implanted:Qty: 1 on 11/24/2019 by Stevenson Dillon MD at [facility] Left: Shoulder [employer] [id number] 04/20/2029 [id number] / / [id number] [employer] [id number] Reverse Shoulder 2 Taper Insert Humeral Trabecular Metal Tivanium - [id number] Implanted:Qty: 1 on 11/24/2019 by Stevenson Dillon MD at [facility] Left: Shoulder [employer] [id number] 09/20/2027 [id number] / / [id number] [employer] [id number] Comprehensive 4.75mm 45mm Fix Angle Lock Hexagonal 3.5mm Screw - [id number] Implanted:Qty: 1 on 10/04/2020 by Stevenson Dillon MD at [facility] Left: Shoulder [employer] 05/22/2023 [id number] / / [id number] [employer] [id number] Comprehensive 4.75mm 45mm Fix Angle Lock Hexagonal 3.5mm Screw - [id number] Implanted:Qty: 1 on 10/04/2020 by Stevenson Dillon MD at [facility] Left: Shoulder [employer] [id number] 11/24/2028 [id number] / / [id number] [employer] [id number] Comprehensive 4.75mm 35mm Fix Angle Lock Hexagonal 3.5mm Screw - [id number] Implanted:Qty: 1 on 10/04/2020 by Stevenson Dillon MD at [facility] Left: Shoulder [employer] [id number] 07/12/2030 [id number] / / [id number] [employer] [id number] Comprehensive Mini Taper Adapter Baseplate Glenoid Sterile Latex - [id number] Implanted:Qty: 1 on 10/04/2020 by Stevenson Dillon MD at [facility] Left: Shoulder [employer] [id number] 06/27/2030 [id number] / / [id number] [employer] [id number] Comprehensive Versa-Dial 36mm Glenosphere Color Coded Shoulder - [id number] Implanted:Qty: 1 on 10/04/2020 by Stevenson Dillon MD at [facility] Left: Shoulder [employer] [id number] 08/06/2030 [id number] / / [id number] [employer] [id number] 36mm H+3mm Reverse Humerus 7d Standard Liner Shoulder Trabecular - [id number] Implanted:Qty: 1 on 10/04/2020 by Stevenson Dillon MD at [facility] Left: Shoulder [employer] [id number] 05/30/2028 [id number] / / [id number] [employer] [id number] Comprehensive Fast Guide Baseplate Glenoid Sterile Latex Free - [id number] Implanted:Qty: 1 on 10/04/2020 by Stevenson Dillon MD at [facility] Left: Shoulder [employer] [id number] 01/10/2021 [id number] / / [id number] Description:Patient matched implant [employer] [id number] Comprehensive 6.5mm 50mm Central Hexagonal 3.5mm Screw Bone - [id number] Implanted:Qty: 1 on 10/04/2020 by Stevenson Dillon MD at [facility] Left: Shoulder [employer] [id number] 02/25/2027 [id number] / / [id number] [employer] [id number] Comprehensive 4.75mm 40mm Fix Angle Lock Hexagonal 3.5mm Screw - [id number] Implanted:Qty: 1 on 10/04/2020 by Stevenson Dillon MD at [facility] Left: Shoulder [employer] [id number] 02/08/2029 [id number] / / [id number] Explanted Type Area Pipe Roller Device Identifier Shelf Expiration Date Model / Serial / Lot [employer] [id number] Bigliani/Flato w 46mm 18mm Modular Shoulder Offset Head Humeral - [id number] Implanted:Qty: 1 on 11/24/2019 by Stevenson Dillon MD at [facility] Explanted:Qty: 1 on 10/04/2020 by Stevenson Dillon MD at [facility] Left: Shoulder [employer] [id number] 12/19/2028 [id number] / / [id number] Insurance [facility] ACCESS CHOICE ANTHEM ACCESS CHOICE ANTHEM PREFERRED ANTHEM ACCESS CHOICE Advance Directives For more information, please contact: [phone] * Full Code (Latest Code Status on File) Date Activated Date Inactivated Comments 10/04/2020 5:11 PM 10/05/2020 7:21 PM * Full Code Date Activated Date Inactivated Comments 11/29/2019 6:43 PM 12/01/2019 7:54 PM * Full Code Date Activated Date Inactivated Comments 11/24/2019 8:14 PM 11/28/2019 9:29 PM Care Teams Programming Equipment Operator Relationship Specialty Start Date End Date Shine Frederick MD [address] [place] [id number] PCP - General 09/20/19
--- OUTSIDE RECORDS SUMMARY | 2025-06-27 13:16 | XMS_ITS | Clinical Summary ---
Author Organization [facility] Address [address] [place] [address] Care Team Providers Care Reproduction Machine Loader Name Role Phone Sophie Fish MD Unavailable [phone] Shine Frederick MD Primary Care Provider [phone] Source Comments [facility],non-owned Affiliates and Associated Physician Practices is amultiple site organization consisting of ambulatory clinics and hospital sitesin [place], [place], [place] and [place]. This disclosure is being madepursuant to the Care Everywhere program and may not contain all information available regarding this patient. Last updated 18.[facility] Allergies Active Allergy Reactions Criticality Noted Date Comments Sulfa Drugs 11/01/2012 Medications * Be aware that medications may not be up to date on this document. Alwaysverify current medications with the patient. DULoxetine (CYMBALTA) 60 MG capsule Take 60 mg by mouth once daily. Active baclofen (LIORESAL) 20 MG tablet Take 20 mg by mouth 3 times daily. May cause drowsiness. Active hydrocodone-acet aminophen (NORCO) 10-325 MG tablet Take 1 Tab [...] at Not on file Legal Sex Female 4:22 PM FLIGHT ATTENDANT/INFLIGHT MANAGER Gender Identity Not on file Sexual Orientation Not on file Last Filed Vital Signs Vital Sign Reading Time Taken Comments Blood Pressure 118/81 10/28/2014 5:33 AM FLIGHT ATTENDANT/INFLIGHT MANAGER Pulse 73 10/28/2014 5:33 AM FLIGHT ATTENDANT/INFLIGHT MANAGER Temperature 36.9 C (98.5 F) 10/28/2014 5:33 AM FLIGHT ATTENDANT/INFLIGHT MANAGER Respiratory Rate 18 10/28/2014 5:33 AM FLIGHT ATTENDANT/INFLIGHT MANAGER Oxygen Saturation 99% 10/28/2014 5:33 AM FLIGHT ATTENDANT/INFLIGHT MANAGER Inhaled Oxygen Concentration - - Weight 61.2 kg (135 lb) 10/27/2014 5:36 PM FLIGHT ATTENDANT/INFLIGHT MANAGER Height 160 cm (5' 3) 10/27/2014 5:36 PM FLIGHT ATTENDANT/INFLIGHT MANAGER Body Mass Index 23.91 10/27/2014 5:36 PM FLIGHT ATTENDANT/INFLIGHT MANAGER Plan of Treatment Health Maintenance Due Date Last Done Comments COLOGUARD (AGES 45-75) - COL ON CA SCREENING 1970 COLON MONITORING 1970 COLONOSCOPY - COLON CA SCREENING 1970 CT COLONOGRAPHY - COLON CA SCREENING 1970 Colorectal Cancer Screening 1970 FIT - COLON CA SCREENING 1970 FLEX SIG - COLON CA SCREENING 1970 LIPID TESTING 1970 MAMMOGRAM 1970 HIV SCREENING 1985 HEPATITIS C SCREENING 02/01/1988 DTAP/TDAP/TD VACCINES (1 - Tdap) 1989 HEPATITIS B VACCINE (1 of 3 - 19+ 3-dose series) 1989 PAP SMEAR 1991 PNEUMOCOCCAL VACCINE 50+ (1 of 1 - PCV) 02/06/2020 ZOSTER VACCINE (1 of 2) 02/06/2020 DEPRESSION SCREENING 09/21/2024 COVID-19 VACCINE (1 - 2023-2 5 season) 2025 INFLUENZA VACCINE (#1) 2025 10/27/2014 HIB VACCINE Aged Out No longer eligi ble based on patient's age to complete this topic HPV VACCINE Aged Out No longer eligi ble based on patient's age to complete this topic MENINGOCOCCAL (Group B) VACC INE SHARED DECISION-MAKING Aged Out No longer eligibl e based on patient's age to complete this topic MENINGOCOCCAL GROUPS A/C/Y/W VACCINE Aged Out No longer eligible b ased on patient's age to complete this topic Insurance [facility] Member Subscriber Plan / Payer (Ef fective 2010-Present) Name:Ronaldo Patel Relation to Subscriber:Spouse Name:ELIZA PATEL Subscriber ID:Not on file (Home) Address: [address] [place] [address] Payer ID:[id number] (NAIC) Type:PPO Address: [address] [facility] * Guarantor: RONALDO PATEL Account Type Relation to Patient Date of Phone Billing Address Personal/Family [address] [place] [address] SELF PAY NO INSURANCE Member Subscriber Plan / Payer (Ef fective for All Dates) Name:Ronaldo Patel E Member ID:Not on file Relation to Subscriber:Not on file Name:RONALDO PATEL Subscriber ID:Not on file Address: [facility] [place] [address] Payer ID:Not on file Group ID:Not on file Type:Self Pay Address: [place], [place] * Guarantor: RONALDO PATEL Account Type Relation to Patient Date of Phone Billing Address Personal/Family [address] [place] [address] SELF PAY NO INSURANCE Member Subscriber Plan / Payer (Ef fective for All Dates) Name:Ronaldo Patel E Member ID:Not on file Relation to Subscriber:Not on file Name:RONALDO PATEL Subscriber ID:Not on file Address: [facility] [address] [place] [id number] Payer ID:Not on file Group ID:Not on file Type:Self Pay Address: [place], [place] * Guarantor: RONALDO PATEL Account Type Relation to Patient Date of Phone Billing Address Personal/Family [address] [place] [address] SELF PAY NO INSURANCE Member Subscriber Plan / Payer (Ef fective for All Dates) Name:Ronaldo Patel E Member ID:Not on file Relation to Subscriber:Not on file Name:RONALDO PATEL Subscriber ID:Not on file Address: [facility] [place] [address] Payer ID:Not on file Group ID:Not on file Type:Self Pay Address: [place], [place] Care Teams Reproduction Machine Loader Relationship Specialty Start Date End Date Shine Frederick MD PCP - General Family Medicine 11/01/12 Sophie Fish MD Orthopedic Surgery 11/01/12
== END 2025-06-27 12:22 | disposition home or self-care (01) ==
PROVIDERS: PCP Family Medicine; Visit Provider Podiatrist Foot & Ankle Surgery
DX: Z01.818 Encounter for other preprocedural examination (principal)
CPT/HCPCS: 36415; 80053; 93005